=== PATIENT | male | born 1970 | race Caucasian/White ===

== ENCOUNTER 2017-09-20 19:34 | Inpatient (IN) | payer OTHER ==
[~2017-09-20] VITALS: Ht 167.6 cm; Wt 101.7 kg
--- NOTE | 2017-09-20 19:45 | NUR ---
PT BIBA, PT A/OX4 BREATHING EFFORTLESSLY ON ROOM AIR, PT STATES HIS STOMACH STARTED BECOMING DISTENDED 3 DAYS AGO AND VEERY DAY IT GETS WORSE, PT STATES HE HAS LIVER FAILURE, PT ON MONITOR, IV PLACED, LAB IN ROOM TO DRAW, MADE AWARE WILL CONTINUE TO MONITOR.
[2017-09-20 20:19] LABS: CALCIUM, SERUM 8.5 mg/dL (8.5-10.1); CREATININE 1.9 mg/dL (0.6-1.3); POTASSIUM 5.2 mmol/L (3.5-5.1)
[2017-09-20 20:31] LABS: ALBUMIN 2.4 g/dL (3.4-5.0); BILIRUBIN,DIRECT 1.1 mg/dL (0.0-0.2); BILIRUBIN,TOTAL 1.7 mg/dL (0.2-1.0); TOTAL PROTEIN, SERUM 4.9 g/dL (6.4-8.2)
[2017-09-20 21:17] LABS: HEMOGLOBIN 3.5 g/dL (13.5-17.5)
[2017-09-20 21:21] LABS: BASOPHILS # (AUTO) 0.1 /CMM (0.0-0.2); BASOPHILS % (AUTO) 0.9 % (0.0-2.0); EOSINOPHILS % (AUTO) 0.3 % (0.0-6.0); LYMPHOCYTES # (AUTO) 1.2 /CMM (0.8-4.8); LYMPHOCYTES % (AUTO) 11.1 % (20.0-44.0); MEAN CORPUSCULAR HEMOGLOBIN 20 PG (26.0-33.0); MEAN CORPUSCULAR HGB CONC 29 g/dl (31.0-36.0); MEAN CORPUSCULAR VOLUME 69 fL (80-96); MONOCYTES % (AUTO) 9.5 % (2.0-12.0); NEUTROPHILS # (AUTO) 8.6 /CMM (1.8-8.9); NEUTROPHILS % (AUTO) 78.2 % (43.0-81.0); PLATELET COUNT (AUTO) 199 /CMM (150-450); RDW COEFFICIENT OF VARIATION 22.2 (11.5-15.0); RED BLOOD CELL COUNT(AUTO) 1.83 MIL/uL (4.5-6.0)
[2017-09-20 21:22] LABS: HEMATOCRIT 13 % (39-51); HEMOGLOBIN 3.7 g/dL (13.5-17.5)
[2017-09-20 21:34] LABS: INR 1.44 (0.87-1.13)
[2017-09-20 21:44] LABS: BAND % (MANUAL) 2 % (0.0-5.0); LYMPHOCYTES % (MANUAL) 14 % (16-48); MONOCYTES % (MANUAL) 2 % (0-11.0); NEUTROPHILS % (MANUAL) 82 (42-76)
[2017-09-20] MEDS ORDERED: ONDANSETRON HCL/PF 4 MG/2 ML VIAL IV ONE (22:00)
[2017-09-20] MEDS ORDERED: MORPHINE SULFATE INJ 10 MG/ML DISP.SYRIN ONE (22:02)
[2017-09-20] MEDS ORDERED: ONDANSETRON HCL/PF 4 MG/2 ML VIAL ONE (22:02)
[2017-09-20] MEDS ORDERED: MORPHINE SULFATE INJ 2 MG/ML DISP.SYRIN IV ONE (22:30)
[2017-09-20 23:00] VITALS: BP 129/69
--- NOTE | 2017-09-20 23:00 | NUR ---
received pt from ER, a/o x4, follows commands, h/h 3.5/12, blood transfusion ordered, waiting for Live Gallegos to come in for the line insertion, has bad veins s/t IV drug abuse, SR, ST, on 2 L 02 sat well, lungs are clear, no edema, urinates in urinal, abdomen distended, s/p liver cirrhosis, had 2 BMs today, black ones, v/s stable, no pain, pt turns and repositions by himself, family at the bedside.
[2017-09-20 23:30] VITALS: BP 129/69
[2017-09-20] MEDS ORDERED: ACETAMINOPHEN 325 MG TABLET PO PRN (23:30)
[2017-09-21] VITALS (24 sets, daily range): BP systolic 105–139; BP diastolic 60–86
[2017-09-21] MEDS ORDERED: ONDANSETRON HCL/PF 4 MG/2 ML VIAL ONE (00:45)
[2017-09-21] MEDS: ONDANSETRON HCL/PF 4 MG/2 ML VIAL IV PRN ×2 (00:50→10:09)
--- NOTE | 2017-09-21 01:15 | NUR ---
Ashley IJ inserted by GUMARO SADLER.
--- NOTE | 2017-09-21 01:20 | NUR ---
pt transferred to [facility] per Dr Stout, report given, ACLS followed, v/s stable.
--- NOTE | 2017-09-21 02:30 | NUR ---
SALES FORCE ADMINISTRATOR; BLOOD TRANSFUSION STARTED, V/S STABLE. AFEBRILE. SINUS TACHY 110-120. DENIED CHEST PAIN. CLOSELY MONITORING FOR TRANSFUSION REACTION.
--- NOTE | 2017-09-21 03:12 | NUR ---
COMPLIANCE COORDINATOR; BLOOD TRANSFUSION ONGOING VIA RIGHT IJ CENTRAL LINE , NO REACTION NOTED IN 15 MIN, CENTRAL LINE VERIFIED WITH CHEST X-RAY, DR LE FROM ER CALLED IN ICU SPOKE TO MARLINE/RN SAID OK TO USE CENTRAL LINE.
--- NOTE | 2017-09-21 06:55 | NUR ---
BROADBAND ENGINEER: 2ND UNIT OF TRANSFUSION ONGOING, NO ADVERSE REACTION NOTED. V/S BEING STABLE. PT IS AAO X4, ABLE TO MOVE HIMSELF. DENIED PAIN. WILL ENDORSE CARE TO NEXT SHIFT.
[2017-09-21 08:19] LABS: BASOPHILS # (AUTO) 0.1 /CMM (0.0-0.2); BASOPHILS % (AUTO) 0.5 % (0.0-2.0); EOSINOPHILS % (AUTO) 0.1 % (0.0-6.0); LYMPHOCYTES # (AUTO) 1.3 /CMM (0.8-4.8); LYMPHOCYTES % (AUTO) 10.7 % (20.0-44.0); MEAN CORPUSCULAR HEMOGLOBIN 22 PG (26.0-33.0); MEAN CORPUSCULAR HGB CONC 31 g/dl (31.0-36.0); MEAN CORPUSCULAR VOLUME 73 fL (80-96); MONOCYTES # (AUTO) 1.5 /CMM (0.1-1.30); MONOCYTES % (AUTO) 11.9 % (2.0-12.0); NEUTROPHILS # (AUTO) 9.5 /CMM (1.8-8.9); NEUTROPHILS % (AUTO) 76.8 % (43.0-81.0); PLATELET COUNT (AUTO) 169 /CMM (150-450); RDW COEFFICIENT OF VARIATION 21.3 (11.5-15.0); RED BLOOD CELL COUNT(AUTO) 2.11 MIL/uL (4.5-6.0); WHITE BLOOD COUNT (AUTO) 12.4 K/uL (4.3-11.0)
[2017-09-21 08:35] LABS: CALCIUM, SERUM 8.2 mg/dL (8.5-10.1); CREATININE 1.8 mg/dL (0.6-1.3)
[2017-09-21 08:42] LABS: HEMATOCRIT 15 % (39-51); HEMOGLOBIN 4.7 g/dL (13.5-17.5)
[2017-09-21] MEDS ORDERED: METH10TA2 PO (08:44)
[2017-09-21] MEDS ORDERED: PANTOPRAZOLE 40 MG VIAL IV SCH (09:00)
[2017-09-21 09:10] LABS: LYMPHOCYTES % (MANUAL) 13 % (16-48); MONOCYTES % (MANUAL) 9 % (0-11.0); NEUTROPHILS % (MANUAL) 78 (42-76)
[2017-09-21] MEDS: FUROSEMIDE 40 MG TABLET PO SCH (10:08)
--- NOTE | 2017-09-21 10:34 | NUR ---
[facility] RN NOTE 0720: Received patient awake, A/Ox4. No respiratory distress noted at this time. On 2LPM of O2 via NC tolerated. With RIJ TLC intact, just done with blood transfusion #2 of 2. Awaiting F/U CBC at 0800 per previous nurse. With urinals at bedside. Still with distended abdomen from ascites. Able to do bed mobility independently. VSS at this time. 0900: S/E by Dr. Stout, verified Methadone dose from the records and said to continue. MD aware for H/H repeat after 2 units PRBC 4.05/27, with order to give 3 more units total today. With plan to transfer to [facility] after blood transfusion, charge nurse aware. 1020: Methadone dose records faxed to pharmacy. On #1 of 3 bag of PRBC ongoing, tolerated, no adverse reaction for now. Will continue to monitor.
[2017-09-21] MEDS: METHADONE HCL 10 MG TABLET PO SCH (15:28)
--- NOTE | 2017-09-21 17:05 | NUR ---
Met with patient and pee Pal at the bedside. Patient is alert, he lives with her firedd in the upper level apartment. Prior to admission, patient was ambulatory and independent with adl's. Plan to transfer to [facility] per insurance request. Per Douglas DARLING @ [facility], still awaiting bed. Will f/u in am Addendum: 09/21/17 at 2125 by ANA LUISA LARSEN RN Amended: Links added.
[2017-09-21] MEDS: PANTOPRAZOLE 40 MG VIAL IV SCH (17:27)
--- NOTE | 2017-09-21 18:34 | NUR ---
[facility] RN NOTE No any significant changes noted at this time. PRBC unit #3 of 3 ongoing, tolerated, no any adverse reactions noted. Kept patient clean, warm and dry. Needs attended. Patient is independent to ADLs. Tolerated diet. RIJ TLC intact. VSS, will endorse to next shift.
[2017-09-21] MEDS: HYDROMORPHONE INJ 2 MG/ML DISP.SYRIN IV PRN (19:49)
--- NOTE | 2017-09-21 19:50 | NUR ---
TD RN PT C/O GENERALIZED PAIN; DILAUDID 0.25 MG IVP GIVEN. CONTINUE TO MONITOR
--- NOTE | 2017-09-21 20:00 | NUR ---
TD RN PRBC INFUSION COMPLETE; NO IMMEDIATE S/O REACTION NOTED.
[2017-09-21 21:17] LABS: HEMOGLOBIN 7.1 g/dL (13.5-17.5)
--- NOTE | 2017-09-21 22:50 | NUR ---
TD RN RCD CALL FROM DR OLGUIN ASKING WHY PT WAS NOT TRANSFERRED TO [facility]; PER REPORT NO BEDS AT [facility] AT THIS TIME. DR OLGUIN ORDERED ONE MORE UNIT OF PRBC; NO ACTIVE BLEEDING NOTED. AWARE. PT TO BE NPO FOR EGD IN THE AM WITH DR FLORES. PT VERBALIZES UNDERSTANDING HE IS NPO.
[2017-09-22] VITALS (10 sets, daily range): BP systolic 109–139; BP diastolic 57–78
--- NOTE | 2017-09-22 03:05 | NUR ---
TD RN PRBC INFUSED; NO IMMEDIATE S/O REACTION NOTED.
[2017-09-22 06:46] LABS: BASOPHILS # (AUTO) 0.1 /CMM (0.0-0.2); BASOPHILS % (AUTO) 0.6 % (0.0-2.0); EOSINOPHILS # (AUTO) 0.1 /CMM (0.0-0.7); EOSINOPHILS % (AUTO) 1.3 % (0.0-6.0); HEMATOCRIT 25 % (39-51); LYMPHOCYTES # (AUTO) 1.7 /CMM (0.8-4.8); LYMPHOCYTES % (AUTO) 16.7 % (20.0-44.0); MEAN CORPUSCULAR HEMOGLOBIN 26 PG (26.0-33.0); MEAN CORPUSCULAR HGB CONC 33 g/dl (31.0-36.0); MEAN CORPUSCULAR VOLUME 79 fL (80-96); MONOCYTES # (AUTO) 1.3 /CMM (0.1-1.30); MONOCYTES % (AUTO) 12.7 % (2.0-12.0); NEUTROPHILS # (AUTO) 6.8 /CMM (1.8-8.9); NEUTROPHILS % (AUTO) 68.7 % (43.0-81.0); PLATELET COUNT (AUTO) 105 /CMM (150-450); RDW COEFFICIENT OF VARIATION 20.6 (11.5-15.0); RED BLOOD CELL COUNT(AUTO) 3.12 MIL/uL (4.5-6.0); WHITE BLOOD COUNT (AUTO) 9.9 K/uL (4.3-11.0)
[2017-09-22 06:56] LABS: CALCIUM, SERUM 7.9 mg/dL (8.5-10.1); CREATININE 1.5 mg/dL (0.6-1.3); POTASSIUM 4.3 mmol/L (3.5-5.1)
--- NOTE | 2017-09-22 07:30 | NUR ---
Received patient awake alert oriented x 3 afebrile no complaints at the moment for transfer to [facility] patient is able to use the bathroom without assist
[2017-09-22] MEDS ORDERED: SPIRONOLACTONE 25 MG TABLET PO SCH (09:00)
[2017-09-22] MEDS ORDERED: METHADONE HCL 10 MG TABLET PO SCH ×2 (09:00→10:31)
[2017-09-22] MEDS: FUROSEMIDE 40 MG TABLET PO SCH (09:00)
[2017-09-22] MEDS: PANTOPRAZOLE 40 MG VIAL IV SCH ×2 (09:10→17:20)
[2017-09-22] MEDS: METHADONE HCL 10 MG TABLET PO SCH (09:11)
--- NOTE | 2017-09-22 14:07 | NUR ---
RN [facility] ORDERED TO GIVE ADDITIONAL 1 PRBC TRANSFUSION ON GOING WILL ABLE TO TRANSFER TO [facility] REPORT GIVEN TO BILL PERRY
[2017-09-22] MEDS ORDERED: FLU VACC QS 2017-18(36MOS+)/PF 0.5 ML DISP.SYRIN IM ONE (15:00)
[2017-09-22] MEDS: HYDROMORPHONE INJ 2 MG/ML DISP.SYRIN IV PRN (17:20)
[2017-09-22] MEDS: ONDANSETRON HCL/PF 4 MG/2 ML VIAL IV PRN (17:20)
--- NOTE | 2017-09-22 17:52 | NUR ---
RN [facility] GAVE REPORT TO EMT/RN WILL TRANSFER PATIENT TO [facility] ENDORSED
== END 2017-09-22 18:23 | disposition short-term general hospital (02) | DRG 253 ==
LOC: ER 19:35 → ICU 23:41 → TELE-TD 09-21 01:08 → TELE1 09-22 13:09
PROVIDERS: ADMIT Internal Medicine; ATTEND Internal Medicine
PROC: B548ZZA Ultrasonography of Superior Vena Cava, Guidance (ICD-10-PCS; principal; 2017-09-21)
PROC: 30233N1 Transfusion of Nonautologous Red Blood Cells into Peripheral Vein, Percutaneous Approach (ICD-10-PCS; principal; 2017-09-21)
PROC: 02HV33Z Insertion of Infusion Device into Superior Vena Cava, Percutaneous Approach (ICD-10-PCS; principal; 2017-09-21)
DX: K92.2 Gastrointestinal hemorrhage, unspecified (principal); N17.0 Acute kidney failure with tubular necrosis; D68.59 Other primary thrombophilia; K76.6 Portal hypertension; D69.6 Thrombocytopenia, unspecified; N18.3 Chronic kidney disease, stage 3 (moderate); D50.0 Iron deficiency anemia secondary to blood loss (chronic); F19.11 Other psychoactive substance abuse, in remission; K70.31 Alcoholic cirrhosis of liver with ascites; Z87.891 Personal history of nicotine dependence; K59.00 Constipation, unspecified; B19.20 Unspecified viral hepatitis C without hepatic coma; F11.11 Opioid abuse, in remission; F10.20 Alcohol dependence, uncomplicated; D62 Acute posthemorrhagic anemia
CPT/HCPCS: 36415; 71010-TC; 76705-TC; 80048-TC; 80076-TC; 82272-TC; 85025-TC; 85027-TC; 85730-TC; 86850-TC; 86921-TC; 87081-TC; A4606; C1751; C9113; J1170; J2270; J2405; J7050; P9016-BL; Q2036; Z7610

== ENCOUNTER 2018-03-29 22:06 | Emergency (ER) | payer OTHER ==
[~2018-03-29 22:06] MED LIST: METH10TA2 PO
--- NOTE | 2018-03-29 22:14 | NUR ---
SPOKE WITH PATIENT, PATIENT STATES HE WANTS TO BE ADMITTED TO A ALCOHOL DETOX FACILITY. I TOLD PATIENT WE DO NOT HAVE A DETOX FACILITY AT [facility], [facility] HAS A DOTOX PROGRAM. PATIENT DECIDED TO GO TO [facility] TO GET INTO [facility] DETOX FACILITY. PATIENT THEN LEFT BEFORE TRIAGE
== END 2018-03-29 22:16 | disposition left against medical advice (07) ==
LOC: ER 22:08
DX: Z53.21 Procedure and treatment not carried out due to patient leaving prior to being seen by health care provider (principal)

== ENCOUNTER 2018-10-26 09:33 | Inpatient (IN) | payer OTHER ==
[2018-10-26] VITALS (47 sets, daily range): BP systolic 91–162; BP diastolic 37–111
[~2018-10-26] VITALS: Ht 170.2 cm; Wt 87.1 kg
[2018-10-26] MEDS ORDERED: PANTOPRAZOLE 40 MG VIAL ONE (09:49)
[2018-10-26] MEDS ORDERED: ONDANSETRON HCL/PF 4 MG/2 ML VIAL ONE (09:50)
[2018-10-26 09:53] LABS: BASOPHILS % (AUTO) 0.5 % (0.0-2.0); LYMPHOCYTES # (AUTO) 0.5 /CMM (0.8-4.8); LYMPHOCYTES % (AUTO) 6.2 % (20.0-44.0); MEAN CORPUSCULAR HGB CONC 28 g/dl (31.0-36.0); MEAN CORPUSCULAR VOLUME 75 fL (80-96); MONOCYTES # (AUTO) 0.9 /CMM (0.1-1.30); MONOCYTES % (AUTO) 10.8 % (2.0-12.0); NEUTROPHILS # (AUTO) 6.8 /CMM (1.8-8.9); NEUTROPHILS % (AUTO) 82.5 % (43.0-81.0); PLATELET COUNT (AUTO) 65 /CMM (150-450); RED BLOOD CELL COUNT(AUTO) 1.29 MIL/uL (4.5-6.0); WHITE BLOOD COUNT (AUTO) 8.2 K/uL (4.3-11.0)
[2018-10-26 09:54] LABS: HEMATOCRIT 10 % (39-51)
[2018-10-26 09:56] LABS: HEMOGLOBIN 2.7 g/dL (13.5-17.5)
[2018-10-26] MEDS ORDERED: OCTREOTIDE 100 MCG/ML VIAL ONE (09:57)
[2018-10-26] MEDS ORDERED: OCTREOTIDE 50 MCG in IV NS 0.9% 50 ML IV ONE (10:00)
[2018-10-26] MEDS ORDERED: ONDANSETRON HCL/PF 4 MG/2 ML VIAL IV ONE (10:00)
[2018-10-26] MEDS ORDERED: PANTOPRAZOLE 40 MG VIAL IV ONE (10:00)
[2018-10-26] MEDS ORDERED: IV NS 0.9% 1,000 ML BAG IV ONE (10:00)
[2018-10-26 10:02] LABS: CALCIUM, SERUM 6.9 mg/dL (8.5-10.1); POTASSIUM 4.1 mmol/L (3.5-5.1)
[2018-10-26 10:17] LABS: ALBUMIN 1.7 g/dL (3.4-5.0); BILIRUBIN,DIRECT 0.9 mg/dL (0.0-0.2); BILIRUBIN,TOTAL 1.4 mg/dL (0.2-1.0); TOTAL PROTEIN, SERUM 3.5 g/dL (6.4-8.2)
[2018-10-26] MEDS ORDERED: CALCIUM CHLORIDE 1,000 MG/10 ML DISP.SYRIN ONE (10:19)
[2018-10-26] MEDS ORDERED: FERR325T23 PO (10:21)
[2018-10-26] MEDS ORDERED: FURO-144 PO (10:21)
[2018-10-26] MEDS ORDERED: DOCU-141 PO (10:21)
[2018-10-26] MEDS ORDERED: CALC500T52 PO (10:21)
[2018-10-26] MEDS ORDERED: MULT1TAB69 PO (10:21)
[2018-10-26] MEDS ORDERED: SPIR25TA PO (10:21)
[2018-10-26] MEDS: OCTREOTIDE 1,250 MCG in IV NS 0.9% 247.5 ML IV PRN ×3 (10:24→17:30)
[2018-10-26] MEDS ORDERED: CALCIUM CHLORIDE 1,000 MG/10 ML DISP.SYRIN IV ONE (10:30)
[2018-10-26] MEDS ORDERED: CEFTRIAXONE 1 G in IV D5W 50 ML IV ONE ×2 (10:30→13:30)
[2018-10-26] MEDS ORDERED: CEFTRIAXONE 1GM BAG (ER ONLY) 50 ML IV ONE (11:00)
[2018-10-26 11:01] LABS: LYMPHOCYTES % (MANUAL) 14 % (16-48); MONOCYTES % (MANUAL) 3 % (0-11.0); NEUTROPHILS % (MANUAL) 83 (42-76)
[2018-10-26] MEDS ORDERED: LORAZEPAM INJ 2 MG/ML VIAL IV PRN (11:30)
[2018-10-26] MEDS ORDERED: ONDANSETRON HCL/PF 4 MG/2 ML VIAL IV PRN (11:30)
[2018-10-26] MEDS: Thiamine 100 MG in IV D5W 50 ML IV SCH (14:12)
[2018-10-26] MEDS: Potassium Chloride 10 MEQ in IV D5/ 0.9% NACL 1,000 ML IV PRN (14:12)
[2018-10-26] MEDS: Folic acid 1 MG in IV D5W 50 ML IV SCH (14:12)
[2018-10-26] MEDS: LORAZEPAM INJ 2 MG/ML VIAL IV PRN ×3 (14:48→23:57)
[2018-10-26] MEDS: PYRIDOXINE HCL INJ 100 MG/ML VIAL IV SCH (15:27)
[2018-10-26] MEDS: MORPHINE SULFATE INJ 4 MG/ML DISP.SYRIN IM PRN ×2 (16:00→20:42)
[2018-10-26] MEDS: CHLORDIAZEPOXIDE HCL 25 MG CAPSULE PO SCH ×2 (16:02→21:55)
[2018-10-26] MEDS: PANTOPRAZOLE 40 MG VIAL IV SCH (17:30)
[2018-10-26] MEDS ORDERED: FUROSEMIDE 20 MG/2 ML VIAL ONE (22:19)
[2018-10-26] MEDS ORDERED: FUROSEMIDE 20 MG/2 ML VIAL IV ONE (22:30)
[2018-10-27] VITALS (61 sets, daily range): BP systolic 88–156; BP diastolic 37–100
[2018-10-27] MEDS ORDERED: LORAZEPAM INJ 2 MG/ML VIAL IM ONE (01:30)
[2018-10-27] MEDS ORDERED: HALOPERIDOL LACTATE INJ 5 MG/ML VIAL IM ONE (01:30)
[2018-10-27] MEDS ORDERED: diphenhydrAMINE HCL 50 MG/ML VIAL IM ONE (01:30)
[2018-10-27] MEDS: LORAZEPAM INJ 2 MG/ML VIAL IV PRN ×2 (04:01→09:47)
[2018-10-27] MEDS ORDERED: LORAZEPAM INJ 2 MG/ML VIAL IV ONE (07:30)
[2018-10-27] MEDS: CHLORDIAZEPOXIDE HCL 25 MG CAPSULE PO SCH ×2 (09:00→18:20)
[2018-10-27] MEDS ORDERED: PYRIDOXINE HCL INJ 100 MG/ML VIAL IV SCH (09:00)
[2018-10-27] MEDS ORDERED: HYDROMORPHONE INJ 0.5 MG/0.5 ML SYRINGE IM ONE ×2 (12:00)
[2018-10-27] MEDS ORDERED: OLANZAPINE 10 MG VIAL IM ONE (12:00)
[2018-10-27] MEDS ORDERED: HYDROMORPHONE 1 MG/1 ML DISP.SYRIN IM ONE (12:30)
[2018-10-27] MEDS: Potassium Chloride 10 MEQ in IV D5/ 0.9% NACL 1,000 ML IV PRN (12:40)
[2018-10-27 13:01] LABS: LYMPHOCYTES # (AUTO) 0.6 /CMM (0.8-4.8); LYMPHOCYTES % (AUTO) 5.9 % (20.0-44.0); MEAN CORPUSCULAR HGB CONC 32 g/dl (31.0-36.0); MEAN CORPUSCULAR VOLUME 81 fL (80-96); MONOCYTES % (AUTO) 18.6 % (2.0-12.0); NEUTROPHILS # (AUTO) 8.2 /CMM (1.8-8.9); NEUTROPHILS % (AUTO) 75.5 % (43.0-81.0); PLATELET COUNT (AUTO) 64 /CMM (150-450); WHITE BLOOD COUNT (AUTO) 10.8 K/uL (4.3-11.0)
[2018-10-27 13:10] LABS: CALCIUM, SERUM 7.7 mg/dL (8.5-10.1); CREATININE 1.7 mg/dL (0.6-1.3); POTASSIUM 5.3 mmol/L (3.5-5.1)
[2018-10-27 13:17] LABS: RED BLOOD CELL COUNT(AUTO) 1.94 MIL/uL (4.5-6.0)
[2018-10-27 13:18] LABS: HEMATOCRIT 16 % (39-51)
[2018-10-27 13:36] LABS: LYMPHOCYTES % (MANUAL) 8 % (16-48); MONOCYTES % (MANUAL) 15 % (0-11.0); NEUTROPHILS % (MANUAL) 77 (42-76)
[2018-10-27] MEDS: PANTOPRAZOLE 40 MG VIAL IV SCH ×2 (15:17→18:35)
[2018-10-27] MEDS: OCTREOTIDE 1,250 MCG in IV NS 0.9% 247.5 ML IV PRN ×2 (15:17→18:34)
[2018-10-27] MEDS: PYRIDOXINE HCL INJ 100 MG/ML VIAL IV SCH (15:19)
[2018-10-27] MEDS ORDERED: PHYTONADIONE INJ 10 MG/1 ML AMPUL IV ONE ×2 (15:30→18:30)
[2018-10-27] MEDS: IV D5/ 0.9% NACL 1,000 ML IV PRN (15:35)
[2018-10-27] MEDS: Thiamine 100 MG in IV D5W 50 ML IV SCH (15:46)
[2018-10-27] MEDS: Folic acid 1 MG in IV D5W 50 ML IV SCH (18:38)
[2018-10-28] VITALS (186 sets, daily range): BP systolic 86–157; BP diastolic 51–103
[2018-10-28] MEDS: LORAZEPAM INJ 2 MG/ML VIAL IV PRN (02:06)
[2018-10-28 04:45] LABS: BASOPHILS % (AUTO) 0.1 % (0.0-2.0); EOSINOPHILS % (AUTO) 0.1 % (0.0-6.0); LYMPHOCYTES # (AUTO) 0.2 /CMM (0.8-4.8); LYMPHOCYTES % (AUTO) 6.9 % (20.0-44.0); MEAN CORPUSCULAR HGB CONC 33 g/dl (31.0-36.0); MEAN CORPUSCULAR VOLUME 80 fL (80-96); MONOCYTES # (AUTO) 0.5 /CMM (0.1-1.30); MONOCYTES % (AUTO) 16.1 % (2.0-12.0); NEUTROPHILS # (AUTO) 2.6 /CMM (1.8-8.9); NEUTROPHILS % (AUTO) 76.8 % (43.0-81.0); RED BLOOD CELL COUNT(AUTO) 2.33 MIL/uL (4.5-6.0); WHITE BLOOD COUNT (AUTO) 3.3 K/uL (4.3-11.0)
[2018-10-28] MEDS: IV D5/ 0.9% NACL 1,000 ML IV PRN ×4 (04:45→22:31)
[2018-10-28 04:46] LABS: ALBUMIN 1.8 g/dL (3.4-5.0); CALCIUM, SERUM 7.3 mg/dL (8.5-10.1); CREATININE 1.2 mg/dL (0.6-1.3); POTASSIUM 4.2 mmol/L (3.5-5.1); TOTAL PROTEIN, SERUM 3.6 g/dL (6.4-8.2)
[2018-10-28 04:55] LABS: HEMATOCRIT 19 % (39-51); HEMOGLOBIN 6.2 g/dL (13.5-17.5); PLATELET COUNT (AUTO) 30 /CMM (150-450)
[2018-10-28 05:23] LABS: LYMPHOCYTES % (MANUAL) 9 % (16-48); MONOCYTES % (MANUAL) 12 % (0-11.0); NEUTROPHILS % (MANUAL) 79 (42-76)
[2018-10-28] MEDS ORDERED: FUROSEMIDE 40 MG/4 ML VIAL IV ONE ×2 (08:30→17:00)
[2018-10-28 08:53] LABS: ABG BASE EXCESS -2.6 mmol/L; ABG OXYGEN SATURATION 97.9 % (92.0-98.5); ABG PCO2 17.5 mmHg (35.0-45.0); ABG PH 7.625 (7.350-7.450); AaDO2 66.9 mmHg; COHb 0.4 % (0.5-1.5); MetHb 1.3 % (0.0-1.5); O2Hb 96.2 % (94.0-97.0); SITE, ABG Right Radial; VENT MODE, BG NC 3LPM
[2018-10-28] MEDS: CHLORDIAZEPOXIDE HCL 25 MG CAPSULE PO SCH ×2 (09:00→16:03)
[2018-10-28] MEDS: PANTOPRAZOLE 40 MG VIAL IV SCH ×2 (09:31→16:13)
[2018-10-28] MEDS ORDERED: MIDAZOLAM HCL 2 MG/2ML VIAL ONE (10:51)
[2018-10-28] MEDS ORDERED: ROCURONIUM BROMIDE 50 MG/5 ML ONE (10:51)
[2018-10-28] MEDS ORDERED: EPINEPHRINE (1:10,000) SYRINGE 1 MG/10 ML DISP.SYRIN ONE ×2 (11:03→11:04)
[2018-10-28] MEDS: PROPOFOL 100 ML IV PRN (12:19)
[2018-10-28] MEDS: MIDODRINE HCL (5MG) 5 MG TABLET PO SCH ×2 (13:00→16:03)
[2018-10-28] MEDS: ALBUMIN 25% 25 GM in PREMIX 1 EA IV SCH ×2 (13:33→23:44)
[2018-10-28] MEDS: CARVEDILOL 3.125 MG TABLET PO SCH ×2 (13:56→20:49)
[2018-10-28] MEDS: Folic acid 1 MG in IV D5W 50 ML IV SCH (14:44)
[2018-10-28] MEDS: PYRIDOXINE HCL INJ 100 MG/ML VIAL IV SCH (16:07)
[2018-10-28] MEDS: Thiamine 100 MG in IV D5W 50 ML IV SCH (16:19)
[2018-10-28 16:41] LABS: BASOPHILS % (AUTO) 0.3 % (0.0-2.0); EOSINOPHILS % (AUTO) 0.1 % (0.0-6.0); HEMATOCRIT 28 % (39-51); HEMOGLOBIN 9.2 g/dL (13.5-17.5); LYMPHOCYTES # (AUTO) 0.3 /CMM (0.8-4.8); LYMPHOCYTES % (AUTO) 4.4 % (20.0-44.0); MEAN CORPUSCULAR HGB CONC 33 g/dl (31.0-36.0); MEAN CORPUSCULAR VOLUME 83 fL (80-96); MONOCYTES # (AUTO) 1.3 /CMM (0.1-1.30); MONOCYTES % (AUTO) 19.4 % (2.0-12.0); NEUTROPHILS # (AUTO) 5.1 /CMM (1.8-8.9); NEUTROPHILS % (AUTO) 75.8 % (43.0-81.0); RED BLOOD CELL COUNT(AUTO) 3.39 MIL/uL (4.5-6.0); WHITE BLOOD COUNT (AUTO) 6.7 K/uL (4.3-11.0)
[2018-10-28 17:07] LABS: PLATELET COUNT (AUTO) 48 /CMM (150-450)
[2018-10-28 17:12] LABS: LYMPHOCYTES % (MANUAL) 7 % (16-48); MONOCYTES % (MANUAL) 8 % (0-11.0); NEUTROPHILS % (MANUAL) 85 (42-76)
[2018-10-28] MEDS: OCTREOTIDE 1,250 MCG in IV NS 0.9% 247.5 ML IV PRN (17:35)
[2018-10-28] MEDS: LACTULOSE 10 G/15 ML UDC (PYXIS) PR SCH (20:49)
[2018-10-29] VITALS (65 sets, daily range): BP systolic 111–157; BP diastolic 60–84
[2018-10-29] MEDS: PROPOFOL 100 ML IV PRN ×4 (02:30→22:22)
[2018-10-29 04:41] LABS: BASOPHILS % (AUTO) 0.3 % (0.0-2.0); EOSINOPHILS % (AUTO) 0.6 % (0.0-6.0); HEMATOCRIT 23 % (39-51); HEMOGLOBIN 7.6 g/dL (13.5-17.5); LYMPHOCYTES # (AUTO) 0.4 /CMM (0.8-4.8); LYMPHOCYTES % (AUTO) 8.4 % (20.0-44.0); MEAN CORPUSCULAR HGB CONC 33 g/dl (31.0-36.0); MEAN CORPUSCULAR VOLUME 83 fL (80-96); NEUTROPHILS # (AUTO) 3.1 /CMM (1.8-8.9); NEUTROPHILS % (AUTO) 68.7 % (43.0-81.0); WHITE BLOOD COUNT (AUTO) 4.5 K/uL (4.3-11.0)
[2018-10-29 04:49] LABS: PLATELET COUNT (AUTO) 36 /CMM (150-450)
[2018-10-29] MEDS: LACTULOSE 10 G/15 ML UDC (PYXIS) PR SCH ×3 (04:53→20:07)
[2018-10-29 05:05] LABS: ALBUMIN 2.5 g/dL (3.4-5.0); BILIRUBIN,TOTAL 5.9 mg/dL (0.2-1.0); CALCIUM, SERUM 7.3 mg/dL (8.5-10.1); CREATININE 1.2 mg/dL (0.6-1.3); MAGNESIUM 2.3 mg/dL (1.8-2.4); POTASSIUM 3.2 mmol/L (3.5-5.1); TOTAL PROTEIN, SERUM 4.3 g/dL (6.4-8.2)
[2018-10-29 05:13] LABS: MONOCYTES % (MANUAL) 15 % (0-11.0)
[2018-10-29 05:14] LABS: LYMPHOCYTES % (MANUAL) 8 % (16-48); NEUTROPHILS % (MANUAL) 77 (42-76)
[2018-10-29] MEDS: LORAZEPAM INJ 2 MG/ML VIAL IV PRN ×2 (07:46→12:30)
[2018-10-29 08:02] LABS: ABG BASE EXCESS -1.2 mmol/L; ABG OXYGEN SATURATION 96.9 % (92.0-98.5); ABG PCO2 27.2 mmHg (35.0-45.0); ABG PH 7.509 (7.350-7.450); ABG PO2 111.7 mmHg (75.0-100.0); AaDO2 142.2 mmHg; COHb 0.3 % (0.5-1.5); MetHb 0.8 % (0.0-1.5); O2Hb 95.8 % (94.0-97.0); SITE, ABG Right Radial; VENT MODE, BG AC 14 550 40% +5
[2018-10-29] MEDS: MIDODRINE HCL (5MG) 5 MG TABLET PO SCH ×3 (08:13→17:00)
[2018-10-29] MEDS: CARVEDILOL 3.125 MG TABLET PO SCH ×2 (08:13→21:00)
[2018-10-29] MEDS: CHLORDIAZEPOXIDE HCL 25 MG CAPSULE PO SCH (08:13)
[2018-10-29] MEDS ORDERED: POTASSIUM CHLORIDE 10 MEQ/50 ML PREMIXED IVPB FOR PERIPHERAL LINE IV ONE (08:30)
[2018-10-29] MEDS: PANTOPRAZOLE 40 MG VIAL IV SCH ×2 (08:48→17:14)
[2018-10-29] MEDS: POTASSIUM CL. PREMIX PERIPHER. 50 ML IV SCH ×4 (08:48→11:51)
[2018-10-29] MEDS: PYRIDOXINE HCL INJ 100 MG/ML VIAL IV SCH (11:01)
[2018-10-29] MEDS: Folic acid 1 MG in IV D5W 50 ML IV SCH (11:25)
[2018-10-29] MEDS: IV D5/ 0.9% NACL 1,000 ML IV PRN (11:36)
[2018-10-29] MEDS: Thiamine 100 MG in IV D5W 50 ML IV SCH (11:54)
[2018-10-29] MEDS: OCTREOTIDE 1,250 MCG in IV NS 0.9% 247.5 ML IV PRN (17:15)
[2018-10-30] VITALS (47 sets, daily range): BP systolic 111–135; BP diastolic 58–87
[2018-10-30] MEDS: IV D5/ 0.9% NACL 1,000 ML IV PRN ×2 (01:44→17:45)
[2018-10-30 05:25] LABS: CALCIUM, SERUM 7.2 mg/dL (8.5-10.1); POTASSIUM 3.2 mmol/L (3.5-5.1)
[2018-10-30] MEDS ORDERED: LACTULOSE 10 G/15 ML UDC (PYXIS) ONE (05:31)
[2018-10-30] MEDS: LACTULOSE 10 G/15 ML UDC (PYXIS) PR SCH ×3 (05:33→19:46)
[2018-10-30 06:07] LABS: BASOPHILS % (AUTO) 0.4 % (0.0-2.0); EOSINOPHILS % (AUTO) 1.5 % (0.0-6.0); HEMATOCRIT 29 % (39-51); HEMOGLOBIN 9.5 g/dL (13.5-17.5); LYMPHOCYTES # (AUTO) 0.2 /CMM (0.8-4.8); LYMPHOCYTES % (AUTO) 4.8 % (20.0-44.0); MEAN CORPUSCULAR HGB CONC 33 g/dl (31.0-36.0); MEAN CORPUSCULAR VOLUME 85 fL (80-96); MONOCYTES # (AUTO) 1.2 /CMM (0.1-1.30); MONOCYTES % (AUTO) 24.8 % (2.0-12.0); NEUTROPHILS # (AUTO) 3.3 /CMM (1.8-8.9); NEUTROPHILS % (AUTO) 68.5 % (43.0-81.0); RED BLOOD CELL COUNT(AUTO) 3.37 MIL/uL (4.5-6.0); WHITE BLOOD COUNT (AUTO) 4.8 K/uL (4.3-11.0)
[2018-10-30 06:09] LABS: PLATELET COUNT (AUTO) 39 /CMM (150-450)
[2018-10-30 06:34] LABS: LYMPHOCYTES % (MANUAL) 4 % (16-48); MONOCYTES % (MANUAL) 16 % (0-11.0); NEUTROPHILS % (MANUAL) 80 (42-76)
[2018-10-30] MEDS: PROPOFOL 100 ML IV PRN ×3 (07:34→19:42)
[2018-10-30 08:25] LABS: ABG BASE EXCESS -4.3 mmol/L; ABG OXYGEN SATURATION 95.7 % (92.0-98.5); ABG PCO2 27.7 mmHg (35.0-45.0); ABG PH 7.446 (7.350-7.450); ABG PO2 90.7 mmHg (75.0-100.0); AaDO2 162.6 mmHg; COHb 0.3 % (0.5-1.5); O2Hb 94.5 % (94.0-97.0); PEEP,BG 5 cm H2O; SITE, ABG Right Radial; VENT MODE, BG AC 14 500; VT, ABG 500 mL
[2018-10-30] MEDS: CARVEDILOL 3.125 MG TABLET PO SCH ×2 (09:00→21:00)
[2018-10-30] MEDS: MIDODRINE HCL (5MG) 5 MG TABLET PO SCH ×3 (09:00→16:47)
[2018-10-30] MEDS ORDERED: CEFTRIAXONE 1 G in IV D5W 50 ML IV SCH (10:00)
[2018-10-30] MEDS ORDERED: POTASSIUM CHLORIDE 10 MEQ/50 ML PREMIXED IVPB FOR PERIPHERAL LINE IV ONE (10:00)
[2018-10-30] MEDS: PYRIDOXINE HCL INJ 100 MG/ML VIAL IV SCH (10:14)
[2018-10-30] MEDS: PANTOPRAZOLE 40 MG VIAL IV SCH ×2 (10:14→17:00)
[2018-10-30] MEDS: POTASSIUM CL. PREMIX PERIPHER. 50 ML IV SCH ×4 (11:25→14:33)
[2018-10-30] MEDS: Folic acid 1 MG in IV D5W 50 ML IV SCH (13:01)
[2018-10-30] MEDS: Thiamine 100 MG in IV D5W 50 ML IV SCH (13:02)
[2018-10-30] MEDS: OCTREOTIDE 1,250 MCG in IV NS 0.9% 247.5 ML IV PRN (18:49)
[2018-10-31] VITALS (43 sets, daily range): BP systolic 112–162; BP diastolic 58–103
[2018-10-31] MEDS: PROPOFOL 100 ML IV PRN ×2 (02:00→06:52)
[2018-10-31 05:03] LABS: BASOPHILS % (AUTO) 0.8 % (0.0-2.0); EOSINOPHILS % (AUTO) 3.7 % (0.0-6.0); HEMATOCRIT 28 % (39-51); LYMPHOCYTES # (AUTO) 0.5 /CMM (0.8-4.8); LYMPHOCYTES % (AUTO) 9.5 % (20.0-44.0); MEAN CORPUSCULAR HGB CONC 32 g/dl (31.0-36.0); MEAN CORPUSCULAR VOLUME 86 fL (80-96); MONOCYTES # (AUTO) 1.2 /CMM (0.1-1.30); MONOCYTES % (AUTO) 23.4 % (2.0-12.0); NEUTROPHILS # (AUTO) 3.3 /CMM (1.8-8.9); NEUTROPHILS % (AUTO) 62.6 % (43.0-81.0); RED BLOOD CELL COUNT(AUTO) 3.25 MIL/uL (4.5-6.0); WHITE BLOOD COUNT (AUTO) 5.2 K/uL (4.3-11.0)
[2018-10-31 05:16] LABS: CALCIUM, SERUM 7.2 mg/dL (8.5-10.1); CREATININE 0.9 mg/dL (0.6-1.3); POTASSIUM 3.7 mmol/L (3.5-5.1)
[2018-10-31] MEDS: LACTULOSE 10 G/15 ML UDC (PYXIS) PR SCH ×2 (05:16→12:43)
[2018-10-31 05:28] LABS: PLATELET COUNT (AUTO) 40 /CMM (150-450)
[2018-10-31 06:10] LABS: LYMPHOCYTES % (MANUAL) 13 % (16-48); MONOCYTES % (MANUAL) 20 % (0-11.0); NEUTROPHILS % (MANUAL) 63 (42-76)
[2018-10-31 06:11] LABS: EOSINOPHILS % (MANUAL) 4 % (0-4)
[2018-10-31] MEDS: IV D5/ 0.9% NACL 1,000 ML IV PRN (06:51)
[2018-10-31 08:26] LABS: ABG OXYGEN SATURATION 96.1 % (92.0-98.5); ABG PCO2 29.4 mmHg (35.0-45.0); ABG PH 7.418 (7.350-7.450); ABG PO2 94.9 mmHg (75.0-100.0); AaDO2 84.5 mmHg; COHb 0.3 % (0.5-1.5); MetHb 0.8 % (0.0-1.5); PEEP,BG 5 cm H2O; SITE, ABG Right Radial; VT, ABG 500 mL
[2018-10-31] MEDS ORDERED: Potassium Chloride 20 MEQ in IV D5/0.45 NACL 1,000 ML IV PRN (08:30)
[2018-10-31] MEDS: LORAZEPAM INJ 2 MG/ML VIAL IV PRN (08:46)
[2018-10-31] MEDS ORDERED: DC PROPOFOL WHEN EXTUBATED XX PRN (09:00)
[2018-10-31] MEDS: PANTOPRAZOLE 40 MG VIAL IV SCH ×2 (10:01→16:52)
[2018-10-31] MEDS: PYRIDOXINE HCL INJ 100 MG/ML VIAL IV SCH (10:01)
[2018-10-31] MEDS: PROPRANOLOL HCL 40 MG TABLET PO SCH ×2 (10:03→20:47)
[2018-10-31] MEDS: PIPERACILLIN /TAZOBACTAM 3.375 G in IV D5W 100 ML IV SCH ×2 (10:56→17:34)
[2018-10-31] MEDS ORDERED: PIPERACILLIN /TAZOBACTAM 3.375 G in IV D5W 50 ML IV SCH (12:00)
[2018-10-31] MEDS: Folic acid 1 MG in IV D5W 50 ML IV SCH (12:11)
[2018-10-31] MEDS: Thiamine 100 MG in IV D5W 50 ML IV SCH (12:49)
[2018-10-31] MEDS: OCTREOTIDE 1,250 MCG in IV NS 0.9% 247.5 ML IV PRN (19:36)
[2018-10-31] MEDS: LACTULOSE 10 G/15 ML UDC (PYXIS) PO SCH (20:47)
[2018-11-01] VITALS (33 sets, daily range): BP systolic 84–169; BP diastolic 54–106
[2018-11-01] MEDS: PIPERACILLIN /TAZOBACTAM 3.375 G in IV D5W 100 ML IV SCH ×3 (01:00→17:23)
[2018-11-01] MEDS: LACTULOSE 10 G/15 ML UDC (PYXIS) PO SCH ×3 (04:13→21:02)
[2018-11-01 04:50] LABS: BASOPHILS # (AUTO) 0.1 /CMM (0.0-0.2); BASOPHILS % (AUTO) 1.2 % (0.0-2.0); EOSINOPHILS % (AUTO) 2.3 % (0.0-6.0); HEMATOCRIT 28 % (39-51); HEMOGLOBIN 8.9 g/dL (13.5-17.5); LYMPHOCYTES # (AUTO) 0.4 /CMM (0.8-4.8); LYMPHOCYTES % (AUTO) 7.2 % (20.0-44.0); MEAN CORPUSCULAR HGB CONC 32 g/dl (31.0-36.0); MEAN CORPUSCULAR VOLUME 88 fL (80-96); MONOCYTES # (AUTO) 1.2 /CMM (0.1-1.30); MONOCYTES % (AUTO) 21.6 % (2.0-12.0); NEUTROPHILS # (AUTO) 3.9 /CMM (1.8-8.9); NEUTROPHILS % (AUTO) 67.7 % (43.0-81.0); RED BLOOD CELL COUNT(AUTO) 3.16 MIL/uL (4.5-6.0); WHITE BLOOD COUNT (AUTO) 5.7 K/uL (4.3-11.0)
[2018-11-01 05:09] LABS: PLATELET COUNT (AUTO) 49 /CMM (150-450)
[2018-11-01 05:26] LABS: CALCIUM, SERUM 6.7 mg/dL (8.5-10.1); CREATININE 0.8 mg/dL (0.6-1.3); MAGNESIUM 1.9 mg/dL (1.8-2.4); POTASSIUM 5.3 mmol/L (3.5-5.1)
[2018-11-01 05:56] LABS: LYMPHOCYTES % (MANUAL) 10 % (16-48); MONOCYTES % (MANUAL) 17 % (0-11.0); NEUTROPHILS % (MANUAL) 73 (42-76)
[2018-11-01] MEDS: LORAZEPAM INJ 2 MG/ML VIAL IV PRN ×2 (07:59→21:00)
[2018-11-01] MEDS: IV D5/0.45 NACL 1,000 ML IV PRN ×2 (08:22→22:03)
[2018-11-01] MEDS: HYDROMORPHONE 1 MG/1 ML DISP.SYRIN IV PRN (08:33)
[2018-11-01] MEDS ORDERED: METHADONE HCL 10 MG TABLET PO SCH (09:00)
[2018-11-01] MEDS: PANTOPRAZOLE 40 MG VIAL IV SCH ×2 (09:23→17:23)
[2018-11-01] MEDS: PYRIDOXINE HCL INJ 100 MG/ML VIAL IV SCH (09:23)
[2018-11-01] MEDS ORDERED: OLANZAPINE 10 MG VIAL IM PRN (10:00)
[2018-11-01] MEDS: PROPRANOLOL HCL 40 MG TABLET PO SCH ×2 (10:09→21:01)
[2018-11-01] MEDS: METHADONE HCL 10 MG TABLET PO SCH (13:49)
[2018-11-01] MEDS ORDERED: Folic acid 1 MG in IV D5W 50 ML IV ONE (15:00)
[2018-11-01] MEDS ORDERED: Thiamine 100 MG in IV D5W 50 ML IV ONE (15:00)
[2018-11-01] MEDS: OCTREOTIDE 1,250 MCG in IV NS 0.9% 247.5 ML IV PRN (16:13)
[2018-11-02] VITALS (24 sets, daily range): BP systolic 114–160; BP diastolic 77–93
[2018-11-02] MEDS: HYDROMORPHONE 1 MG/1 ML DISP.SYRIN IV PRN (01:27)
[2018-11-02] MEDS: PIPERACILLIN /TAZOBACTAM 3.375 G in IV D5W 100 ML IV SCH ×3 (02:15→18:06)
[2018-11-02] MEDS: LACTULOSE 10 G/15 ML UDC (PYXIS) PO SCH ×3 (04:42→20:57)
[2018-11-02 04:53] LABS: BASOPHILS # (AUTO) 0.3 /CMM (0.0-0.2); EOSINOPHILS % (AUTO) 5.2 % (0.0-6.0); HEMATOCRIT 31 % (39-51); HEMOGLOBIN 10.1 g/dL (13.5-17.5); LYMPHOCYTES # (AUTO) 0.8 /CMM (0.8-4.8); LYMPHOCYTES % (AUTO) 12.3 % (20.0-44.0); MEAN CORPUSCULAR HGB CONC 33 g/dl (31.0-36.0); MEAN CORPUSCULAR VOLUME 86 fL (80-96); MONOCYTES # (AUTO) 1.1 /CMM (0.1-1.30); MONOCYTES % (AUTO) 18.1 % (2.0-12.0); NEUTROPHILS # (AUTO) 3.6 /CMM (1.8-8.9); PLATELET COUNT (AUTO) 59 /CMM (150-450); RED BLOOD CELL COUNT(AUTO) 3.58 MIL/uL (4.5-6.0); WHITE BLOOD COUNT (AUTO) 6.1 K/uL (4.3-11.0)
[2018-11-02 05:01] LABS: CALCIUM, SERUM 7.2 mg/dL (8.5-10.1); CREATININE 0.7 mg/dL (0.6-1.3); MAGNESIUM 1.8 mg/dL (1.8-2.4); POTASSIUM 3.9 mmol/L (3.5-5.1)
[2018-11-02 05:34] LABS: BASOPHILS % (AUTO) 5.4 % (0.0-2.0)
[2018-11-02 06:04] LABS: BASOPHILS % (MANUAL) 2 % (0.0-2.0); EOSINOPHILS % (MANUAL) 1 % (0-4); MONOCYTES % (MANUAL) 17 % (0-11.0); NEUTROPHILS % (MANUAL) 69 (42-76)
[2018-11-02 06:05] LABS: LYMPHOCYTES % (MANUAL) 11 % (16-48)
[2018-11-02] MEDS: METHADONE HCL 10 MG TABLET PO SCH (08:14)
[2018-11-02] MEDS: PANTOPRAZOLE 40 MG VIAL IV SCH ×2 (08:15→16:32)
[2018-11-02] MEDS: PYRIDOXINE HCL INJ 100 MG/ML VIAL IV SCH (08:19)
[2018-11-02] MEDS: PROPRANOLOL HCL 40 MG TABLET PO SCH ×2 (08:22→20:58)
[2018-11-02] MEDS ORDERED: FOLIC ACID 1 MG TABLET PO SCH (09:00)
[2018-11-02] MEDS ORDERED: THIAMINE HCL 100 MG TABLET PO SCH (09:00)
[2018-11-02] MEDS: IV D5/0.45 NACL 1,000 ML IV PRN (12:37)
[2018-11-02] MEDS: OCTREOTIDE 1,250 MCG in IV NS 0.9% 247.5 ML IV PRN (18:54)
[2018-11-02] MEDS: LORAZEPAM INJ 2 MG/ML VIAL IV PRN (20:57)
[2018-11-03] VITALS: BP 137/79
[2018-11-03] MEDS: HYDROMORPHONE 1 MG/1 ML DISP.SYRIN IV PRN (01:35)
[2018-11-03] MEDS: PIPERACILLIN /TAZOBACTAM 3.375 G in IV D5W 100 ML IV SCH ×3 (01:38→18:07)
[2018-11-03] MEDS: IV D5/0.45 NACL 1,000 ML IV PRN (03:44)
[2018-11-03] MEDS: LACTULOSE 10 G/15 ML UDC (PYXIS) PO SCH ×2 (03:50→12:47)
[2018-11-03 04:00] VITALS: BP 142/74
[2018-11-03 08:00] VITALS: BP 127/81
[2018-11-03 08:33] LABS: BASOPHILS # (AUTO) 0.2 /CMM (0.0-0.2); BASOPHILS % (AUTO) 3.2 % (0.0-2.0); HEMATOCRIT 31 % (39-51); HEMOGLOBIN 10.1 g/dL (13.5-17.5); LYMPHOCYTES # (AUTO) 0.7 /CMM (0.8-4.8); LYMPHOCYTES % (AUTO) 8.7 % (20.0-44.0); MEAN CORPUSCULAR HGB CONC 33 g/dl (31.0-36.0); MEAN CORPUSCULAR VOLUME 86 fL (80-96); MONOCYTES # (AUTO) 1.2 /CMM (0.1-1.30); MONOCYTES % (AUTO) 15.2 % (2.0-12.0); NEUTROPHILS # (AUTO) 5.3 /CMM (1.8-8.9); NEUTROPHILS % (AUTO) 69.9 % (43.0-81.0); PLATELET COUNT (AUTO) 74 /CMM (150-450); RED BLOOD CELL COUNT(AUTO) 3.57 MIL/uL (4.5-6.0); WHITE BLOOD COUNT (AUTO) 7.6 K/uL (4.3-11.0)
[2018-11-03 08:42] LABS: CREATININE 0.9 mg/dL (0.6-1.3); POTASSIUM 3.6 mmol/L (3.5-5.1)
[2018-11-03] MEDS: PANTOPRAZOLE 40 MG VIAL IV SCH ×2 (09:06→17:59)
[2018-11-03] MEDS: METHADONE HCL 10 MG TABLET PO SCH (09:08)
[2018-11-03] MEDS: PROPRANOLOL HCL 40 MG TABLET PO SCH ×2 (09:09→21:13)
[2018-11-03] MEDS: PYRIDOXINE HCL INJ 100 MG/ML VIAL IV SCH (09:11)
[2018-11-03 11:03] LABS: BAND % (MANUAL) 1 % (0.0-5.0); EOSINOPHILS % (MANUAL) 5 % (0-4); LYMPHOCYTES % (MANUAL) 7 % (16-48); MONOCYTES % (MANUAL) 15 % (0-11.0); NEUTROPHILS % (MANUAL) 72 (42-76)
[2018-11-03 12:00] VITALS: BP 122/78
[2018-11-03 16:00] VITALS: BP 123/83
[2018-11-03 20:00] VITALS: BP 138/87
[2018-11-04] VITALS: BP 104/78
[2018-11-04] MEDS: PIPERACILLIN /TAZOBACTAM 3.375 G in IV D5W 100 ML IV SCH ×2 (01:10→09:03)
[2018-11-04 04:00] VITALS: BP 138/84
[2018-11-04] MEDS: IV D5/0.45 NACL 1,000 ML IV PRN (05:07)
[2018-11-04 06:17] LABS: BASOPHILS # (AUTO) 0.3 /CMM (0.0-0.2); BASOPHILS % (AUTO) 3.7 % (0.0-2.0); EOSINOPHILS % (AUTO) 3.1 % (0.0-6.0); HEMATOCRIT 29 % (39-51); HEMOGLOBIN 9.7 g/dL (13.5-17.5); LYMPHOCYTES # (AUTO) 0.6 /CMM (0.8-4.8); LYMPHOCYTES % (AUTO) 8.3 % (20.0-44.0); MEAN CORPUSCULAR HGB CONC 33 g/dl (31.0-36.0); MEAN CORPUSCULAR VOLUME 87 fL (80-96); MONOCYTES % (AUTO) 14.6 % (2.0-12.0); NEUTROPHILS % (AUTO) 70.3 % (43.0-81.0); PLATELET COUNT (AUTO) 71 /CMM (150-450); WHITE BLOOD COUNT (AUTO) 7.1 K/uL (4.3-11.0)
[2018-11-04 06:24] LABS: ALBUMIN 1.8 g/dL (3.4-5.0); BILIRUBIN,TOTAL 20.9 mg/dL (0.2-1.0); CALCIUM, SERUM 7.2 mg/dL (8.5-10.1); CREATININE 0.9 mg/dL (0.6-1.3); POTASSIUM 3.6 mmol/L (3.5-5.1)
[2018-11-04] MEDS: HYDROMORPHONE 1 MG/1 ML DISP.SYRIN IV PRN (07:42)
[2018-11-04 08:00] VITALS: BP 128/87
[2018-11-04] MEDS: PYRIDOXINE HCL INJ 100 MG/ML VIAL IV SCH (08:52)
[2018-11-04] MEDS: PANTOPRAZOLE 40 MG VIAL IV SCH (08:52)
[2018-11-04] MEDS: METHADONE HCL 10 MG TABLET PO SCH (08:53)
[2018-11-04] MEDS: PROPRANOLOL HCL 40 MG TABLET PO SCH (08:53)
[2018-11-04] MEDS ORDERED: LACTULOSE 10 G/15 ML UDC (PYXIS) PO PRN (09:00)
[2018-11-04] MEDS ORDERED: PANTOPRAZOLE 40 MG TABLET.DR PO SCH (10:00)
[2018-11-04] MEDS ORDERED: LACT10SO6 PO (10:03)
[2018-11-04] MEDS ORDERED: PANT40TA2 PO (10:03)
[2018-11-04] MEDS ORDERED: PROP40TA7 PO (10:03)
[2018-11-04 10:12] LABS: BAND % (MANUAL) 1 % (0.0-5.0); LYMPHOCYTES % (MANUAL) 4 % (16-48); MONOCYTES % (MANUAL) 13 % (0-11.0); NEUTROPHILS % (MANUAL) 82 (42-76)
[2018-11-04 12:00] VITALS: BP 118/72
[2018-11-04] MEDS ORDERED: LACTULOSE 10 G/15 ML UDC (PYXIS) PO SCH (12:00)
== END 2018-11-04 14:50 | disposition home health service (06) | DRG 280 ==
LOC: ER 09:35 → ICU 10:42 → TELE-TD 11-02 17:17
PROVIDERS: ADMIT Internal Medicine; ATTEND Internal Medicine
PROC: 30233N1 Transfusion of Nonautologous Red Blood Cells into Peripheral Vein, Percutaneous Approach (ICD-10-PCS; 2018-10-26)
PROC: 30233K1 Transfusion of Nonautologous Frozen Plasma into Peripheral Vein, Percutaneous Approach (ICD-10-PCS; 2018-10-26)
PROC: 02HV33Z Insertion of Infusion Device into Superior Vena Cava, Percutaneous Approach (ICD-10-PCS; 2018-10-27)
PROC: 06L38CZ Occlusion of Esophageal Vein with Extraluminal Device, Via Natural or Artificial Opening Endoscopic (ICD-10-PCS; principal; 2018-10-28)
PROC: 5A1945Z Respiratory Ventilation, 24-96 Consecutive Hours (ICD-10-PCS; principal; 2018-10-28)
PROC: 0BH17EZ Insertion of Endotracheal Airway into Trachea, Via Natural or Artificial Opening (ICD-10-PCS; principal; 2018-10-28)
PROC: 30233R1 Transfusion of Nonautologous Platelets into Peripheral Vein, Percutaneous Approach (ICD-10-PCS; principal; 2018-10-28)
PROC: 0W9G3ZZ Drainage of Peritoneal Cavity, Percutaneous Approach (ICD-10-PCS; 2018-11-02)
DX: K70.31 Alcoholic cirrhosis of liver with ascites (principal); I85.11 Secondary esophageal varices with bleeding; D68.9 Coagulation defect, unspecified; D69.6 Thrombocytopenia, unspecified; K25.4 Chronic or unspecified gastric ulcer with hemorrhage; E88.09 Other disorders of plasma-protein metabolism, not elsewhere classified; D62 Acute posthemorrhagic anemia; K72.90 Hepatic failure, unspecified without coma; F10.239 Alcohol dependence with withdrawal, unspecified; B19.9 Unspecified viral hepatitis without hepatic coma; F11.23 Opioid dependence with withdrawal; K76.6 Portal hypertension; K29.71 Gastritis, unspecified, with bleeding; K20.9 Esophagitis, unspecified; E87.6 Hypokalemia; Z53.09 Procedure and treatment not carried out because of other contraindication; I12.9 Hypertensive chronic kidney disease with stage 1 through stage 4 chronic kidney disease, or unspecified chronic kidney disease; N18.9 Chronic kidney disease, unspecified
CPT/HCPCS: 31720; 36415; 36569; 36600; 71045-TC; 76700-TC; 76942-TC; 80048-TC; 80053-TC; 80074; 80076-TC; 82140-TC; 82803-TC; 82962-TC; 83690-TC; 83735-TC; 84484-TC; 85025-TC; 85610-TC; 85730-TC; 86850-TC; 86921-TC; 87070-TC; 87081-TC; 87806; 88305-TC; 88312-TC; 89051-TC; 92526; 92611-TC; 94002-TC; 94003-TC; 94799-TC; 99082-TC; A4216; A4349; A6402; C1751; C9113; G0378; J0171; J0696; J1170; J1200; J1630; J1940; J2060; J2250; J2270; J2354; J2405; J2543; J2704; J3411; J3415; J3430; J3480; J3490; J7030; J7042; J7050; J7060; P9016-BL; P9017-BL; P9034-BL; P9047; Q2036

== ENCOUNTER 2019-07-26 12:30 | Inpatient (IN) | payer OTHER ==
[2019-07-26] VITALS (17 sets, daily range): BP systolic 118–143; BP diastolic 46–84
[~2019-07-26] VITALS: Ht 170.2 cm; Wt 97.5 kg
[~2019-07-26 12:30] MED LIST changes: +CALC500T52 PO; +FERR325T23 PO; +FURO-144 PO; +LACT10SO6 PO; -METH10TA2 PO; +MULT1TAB69 PO; +PANT40TA2 PO; +PROP40TA7 PO; +SPIR25TA PO
--- NOTE | 2019-07-26 12:34 | NUR ---
[id number] C/O ABD PAIN W/ SOB, SCROTUM AREA SWELLING AND L UPPER LEG PAIN. PATIENT NOTED W JAUNDICE. TO ER BED 10, HOOKED TO MONITOR, CHANGED TO GOWN, PROVIDED W WARM BLANKET, AWAITING MD ABBOTT.
--- NOTE | 2019-07-26 12:48 | NUR ---
DR CEBALLOS AT BEDSIDE FOR EVAL
[2019-07-26] MEDS ORDERED: MORPHINE SULFATE INJ 2 MG/ML DISP.SYRIN IV ONE (13:00)
--- NOTE | 2019-07-26 13:16 | NUR ---
CALLED XRAY FOR PARACENTESIS
--- NOTE | 2019-07-26 13:26 | NUR ---
PATIENT SIGNED CONSENT FOR ULTRASOUND GUIDED PARENTESIS
[2019-07-26 13:27] LABS: BASOPHILS # (AUTO) 0.1 /CMM (0.0-0.2); BASOPHILS % (AUTO) 1.7 % (0.0-2.0); EOSINOPHILS % (AUTO) 2.2 % (0.0-6.0); LYMPHOCYTES # (AUTO) 0.4 /CMM (0.8-4.8); LYMPHOCYTES % (AUTO) 11.4 % (20.0-44.0); MEAN CORPUSCULAR HGB CONC 28 g/dl (31.0-36.0); MEAN CORPUSCULAR VOLUME 68 fL (80-96); MONOCYTES # (AUTO) 0.5 /CMM (0.1-1.30); MONOCYTES % (AUTO) 14.8 % (2.0-12.0); NEUTROPHILS # (AUTO) 2.6 /CMM (1.8-8.9); NEUTROPHILS % (AUTO) 69.9 % (43.0-81.0); PLATELET COUNT (AUTO) 113 /CMM (150-450); WHITE BLOOD COUNT (AUTO) 3.7 K/uL (4.3-11.0)
[2019-07-26] MEDS ORDERED: MORPHINE SULFATE INJ 4 MG/ML DISP.SYRIN ONE (13:27)
[2019-07-26 13:34] LABS: CALCIUM, SERUM 7.7 mg/dL (8.5-10.1); CREATININE 1.3 mg/dL (0.6-1.3); HEMATOCRIT 11 % (39-51); POTASSIUM 3.7 mmol/L (3.5-5.1)
[2019-07-26 13:40] LABS: ALBUMIN 2.2 g/dL (3.4-5.0); BILIRUBIN,DIRECT 1.2 mg/dL (0.0-0.2); BILIRUBIN,TOTAL 1.3 mg/dL (0.2-1.0); TOTAL PROTEIN, SERUM 5.2 g/dL (6.4-8.2)
--- NOTE | 2019-07-26 14:30 | NUR ---
US TECH AT BEDSIDE FOR PARENTESIS
[2019-07-26 14:36] LABS: OCCULT BLOOD STOOL POSITIVE (NEGATIVE)
[2019-07-26 14:49] LABS: BAND % (MANUAL) 3 % (0.0-5.0); BASOPHILS % (MANUAL) 1 % (0.0-2.0); EOSINOPHILS % (MANUAL) 2 % (0-4); LYMPHOCYTES % (MANUAL) 19 % (16-48); MONOCYTES % (MANUAL) 13 % (0-11.0); NEUTROPHILS % (MANUAL) 62 (42-76)
[2019-07-26] MEDS ORDERED: PANTOPRAZOLE 40 MG VIAL ONE (14:56)
[2019-07-26] MEDS ORDERED: PANTOPRAZOLE 40 MG VIAL IV ONE (15:00)
--- NOTE | 2019-07-26 15:03 | NUR ---
CHARITO FROM [facility] CALLING FOR LABS AND V/S. PT WILL POSSIBLY STAY IN THE FACILITY D/T LOW HGB
--- NOTE | 2019-07-26 15:22 | NUR ---
CALLED DR DUARTE. AWAITING HIS CALL BACK
--- NOTE | 2019-07-26 15:40 | NUR ---
5 LITERS OF ABDOMINAL FLUID COLLECTED BY US TECH AT RLQ
--- NOTE | 2019-07-26 15:45 | NUR ---
VERIFIED BLOOD TO BE TRANSFUSED WITH MEGAN ZULUAGA RN.
--- NOTE | 2019-07-26 15:51 | NUR ---
PATIENT STARTED WITH BLOOD TRANSFUSION. VITAL SIGNS STABLE. WILL CONTINUE TO MONITOR
--- NOTE | 2019-07-26 15:52 | NUR ---
CALLED DR DUARTE AND LEFT A MESSAGE AGAIN. AWAITING HIS CALL BACK
--- NOTE | 2019-07-26 16:06 | NUR ---
ONGOING BLOOD TRANSFUSION, NO ADVERSE REACTION NOTED, VITAL SIGNS TAKEN AND STABLE
--- NOTE | 2019-07-26 16:10 | NUR ---
Called Nursing [facility] for ICU bed.
--- NOTE | 2019-07-26 16:13 | NUR ---
[facility]. FACILITY SERVICE ASSOCIATE SPEAKING TO HOSPITALIST
--- NOTE | 2019-07-26 16:29 | NUR ---
DR ERICKSON AT BEDSIDE
[2019-07-26] MEDS ORDERED: MORPHINE SULFATE INJ 2 MG/ML DISP.SYRIN IV PRN (17:00)
[2019-07-26] MEDS ORDERED: MAG HYDROX/AL HYDROX/SIMETH 30 ML UDC PO PRN (17:00)
[2019-07-26] MEDS ORDERED: MAGNESIUM HYDROXIDE 30 ML UDC PO PRN (17:00)
[2019-07-26] MEDS ORDERED: Z GUARD REMEDY 2 OZ OINT TP PRN (17:00)
[2019-07-26] MEDS ORDERED: LACTULOSE 10 G/15 ML UDC (PYXIS) PO PRN (17:00)
[2019-07-26] MEDS ORDERED: ONDANSETRON HCL/PF 4 MG/2 ML VIAL IVP PRN (17:00)
[2019-07-26] MEDS ORDERED: PANTOPRAZOLE 40 MG VIAL IV SCH (17:00)
--- NOTE | 2019-07-26 17:07 | NUR ---
REPORT GIVEN TO HAMILTON OF ICU
[2019-07-26] MEDS ORDERED: OCTREOTIDE 50 MCG in IV NS 0.9% 50 ML IV ONE (17:30)
[2019-07-26] MEDS ORDERED: OCTREOTIDE 1,250 MCG in IV NS 0.9% 247.5 ML IV PRN (18:00)
[2019-07-26] MEDS: FERROUS SULFATE (325 MG) 325 MG/TAB TABLET PO SCH (18:31)
[2019-07-26 19:24] LABS: IRON, SERUM 10 ug/dl (50-175)
[2019-07-26 19:25] LABS: TOTAL IRON BINDING CAPACITY 333 ug/dl (250-450)
[2019-07-26 19:38] LABS: FERRITIN 7 ng/mL (8-388)
--- NOTE | 2019-07-26 20:00 | NUR ---
Received patient AAOX4.MUNGUIA.VS stable.SR per tele monitoring.Respiration even and unlabored. SPO2 100% on RA. H/H 3.0/11.to received 3 units PRBC.With ongoing blood transfusion 2nd uint. Denies pain sob or any discomfort.JULIANNE MIDLINE inserted with good blood return.Sandostatin bolus given to be followed by gtt.Safety measures implemented.Encouraged to use call light for assistance. Kept at bedside.Continue monitoring.
--- NOTE | 2019-07-26 20:54 | NUR ---
Received call from with orders.If H/H <8 to give 1 unit PRBC, IF H/H < 7 give 2 units PRBC, IF H/H < 6 give 3 units PRBC.
[2019-07-27] VITALS (53 sets, daily range): BP systolic 119–164; BP diastolic 49–93
--- NOTE | 2019-07-27 00:40 | NUR ---
Patient resting.VS stable.3 units PRBC completed and no adverse reaction noted. Will recheck H/H in 1 HR.
[2019-07-27 01:33] LABS: HEMOGLOBIN 5.5 g/dL (13.5-17.5)
[2019-07-27 01:34] LABS: BILIRUBIN,DIRECT 1.8 mg/dL (0.0-0.2); BILIRUBIN,TOTAL 2.9 mg/dL (0.2-1.0)
[2019-07-27 02:26] LABS: MEAN CORPUSCULAR HGB CONC 31 g/dl (31.0-36.0); MEAN CORPUSCULAR VOLUME 76 fL (80-96); PLATELET COUNT (AUTO) 92 /CMM (150-450); RED BLOOD CELL COUNT(AUTO) 2.35 MIL/uL (4.5-6.0); WHITE BLOOD COUNT (AUTO) 3.3 K/uL (4.3-11.0)
[2019-07-27 02:35] LABS: HEMATOCRIT 18 % (39-51); HEMOGLOBIN 5.5 g/dL (13.5-17.5)
[2019-07-27 02:36] LABS: HEMOGLOBIN 5.5 g/dL (13.5-17.5)
--- NOTE | 2019-07-27 03:55 | NUR ---
H/H 5.5 Post blood transfusion. Protocol initiated.To transfuse 3 units of PRBC 1st unit infusing. VS stable.Patient resting in no distress.Patient refused bed bath.
[2019-07-27 04:43] LABS: BASOPHILS % (AUTO) 1.4 % (0.0-2.0); EOSINOPHILS % (AUTO) 7.4 % (0.0-6.0); LYMPHOCYTES # (AUTO) 0.7 /CMM (0.8-4.8); LYMPHOCYTES % (AUTO) 19.6 % (20.0-44.0); MEAN CORPUSCULAR HGB CONC 31 g/dl (31.0-36.0); MEAN CORPUSCULAR VOLUME 76 fL (80-96); MONOCYTES # (AUTO) 0.5 /CMM (0.1-1.30); MONOCYTES % (AUTO) 14.2 % (2.0-12.0); NEUTROPHILS # (AUTO) 1.9 /CMM (1.8-8.9); NEUTROPHILS % (AUTO) 57.4 % (43.0-81.0); PLATELET COUNT (AUTO) 87 /CMM (150-450); RED BLOOD CELL COUNT(AUTO) 2.37 MIL/uL (4.5-6.0); WHITE BLOOD COUNT (AUTO) 3.3 K/uL (4.3-11.0)
[2019-07-27 04:50] LABS: HEMOGLOBIN 5.6 g/dL (13.5-17.5)
[2019-07-27 04:51] LABS: HEMATOCRIT 18 % (39-51)
[2019-07-27 04:57] LABS: CALCIUM, SERUM 7.6 mg/dL (8.5-10.1); CREATININE 1.2 mg/dL (0.6-1.3); MAGNESIUM 1.8 mg/dL (1.8-2.4); POTASSIUM 4.3 mmol/L (3.5-5.1)
[2019-07-27 05:05] LABS: THYROID STIMULATING HORMONE 0.624 uIU/mL (0.358-3.74)
--- NOTE | 2019-07-27 06:35 | NUR ---
Patient resting in no acute distress.VS remains stable. Above blood transfusion infusing well. To received 2 more units of PRBC.Will endorse to day shift for continuity of care.
[2019-07-27 07:33] LABS: EOSINOPHILS % (MANUAL) 3 % (0-4); LYMPHOCYTES % (MANUAL) 15 % (16-48); MONOCYTES % (MANUAL) 12 % (0-11.0); NEUTROPHILS % (MANUAL) 70 (42-76)
--- NOTE | 2019-07-27 08:34 | NUR ---
received pt from shift superintendent, a/o x4, SR, receiving blood for last h/h of 5.04/30, RA, sat well, tolerates diet, uses urinal, v/s stable, no pain, pt turns and repositions by himself.
[2019-07-27] MEDS: MULTIVITAMINS,THERAGRAN 1 UDTAB TABLET PO SCH (08:50)
[2019-07-27] MEDS: FERROUS SULFATE (325 MG) 325 MG/TAB TABLET PO SCH (08:50)
[2019-07-27] MEDS: CALCIUM CARBONATE (1250) 500 MG TABLET PO SCH (08:50)
[2019-07-27] MEDS ORDERED: PANTOPRAZOLE 40 MG VIAL IV SCH (09:00)
[2019-07-27] MEDS: PANTOPRAZOLE 40 MG TABLET.DR PO SCH ×2 (10:00→20:47)
[2019-07-27] MEDS ORDERED: PROPRANOLOL LA 60 MG CAP.SA.24H PO SCH (10:00)
[2019-07-27] MEDS: SPIRONOLACTONE 25 MG TABLET PO SCH (10:45)
[2019-07-27] MEDS: FUROSEMIDE 20 MG TABLET PO SCH (10:45)
--- NOTE | 2019-07-27 12:53 | NUR ---
blood transfusion finished, pt a/o x4, SR, v/s stable, no pain, no transfusion reactions.
[2019-07-27 14:06] LABS: HEMOGLOBIN 8.6 g/dL (13.5-17.5)
[2019-07-27] MEDS ORDERED: MAGNESIUM CITRATE 296 ML BOTTLE PO ONE (14:30)
[2019-07-27] MEDS ORDERED: PEG 3350/NA SULF,BICARB,CL/KCL 4,000 ML BOTTLE PO ONE (14:30)
[2019-07-27] MEDS ORDERED: NA PHOS,M-B/NA PHOS,DI-BA 1 EA ENEMA RC PRN (14:30)
[2019-07-27] MEDS: METHADONE HCL 10 MG TABLET PO SCH (14:53)
--- NOTE | 2019-07-27 16:17 | NUR ---
pt is resting in the bed, a/o x4, SR, v/s stable, received methadone, pt cleaned, and changed.
[2019-07-27] MEDS: LACTULOSE 10 G/15 ML UDC (PYXIS) PO SCH (16:21)
[2019-07-27 18:05] LABS: HEMATOCRIT 28 % (39-51); HEMOGLOBIN 9.1 g/dL (13.5-17.5); MEAN CORPUSCULAR HGB CONC 32 g/dl (31.0-36.0); MEAN CORPUSCULAR VOLUME 78 fL (80-96); PLATELET COUNT (AUTO) 97 /CMM (150-450); RED BLOOD CELL COUNT(AUTO) 3.62 MIL/uL (4.5-6.0); WHITE BLOOD COUNT (AUTO) 5.9 K/uL (4.3-11.0)
--- NOTE | 2019-07-27 18:52 | NUR ---
MS IDENTIFIER HORSE NOTE PATIENT RECEIVED BY NAIDA. PATIENT IS ALERT AND ORIENTED X4. PATIENT BREATHING IS EVEN AND UNLABORED. PATIENT IN NO ACUTE DISTRESS. NO SOB NOTED. VITAL SIGNS WNL. IV INTACT. PATIENT FAMILY AT THE BEDSIDE. PATIENT HOB IS ELEVATED. BED ALARM IS ON. SAFETY PRECAUTIONS IN PLACE. PATIENT IS KEPT CLEAN, DRY, AND COMFORTABLE. PATIENT BED IS LOCKED AND IN LOWEST POSITION. CALL LIGHT WITHIN REACH. WILL ENDORSE CARE TO PM SHIFT FOR JOSE ROBERTO.
--- NOTE | 2019-07-27 18:58 | NUR ---
pt transferred to [facility], v/s stable, no pain.
--- NOTE | 2019-07-27 19:13 | NUR ---
RN OPENING NOTES RECEIVED PATIENT FROM BILL DELAROSA. PATIENT IS CURRENTLY RESTING IN BED, COMFORTABLE, AWAKE. PATIENT A/O X 4. NO SIGNS OF RESPIRATORY DISTRESS. PATIENT DENIES SHORTNESS OF BREATH. VITALS SIGNS STABLE, WNL. IV SITES: RAC 20G, JULIANNE MIDLINE: BOTH INTACT, PATENT, FLUSHED, S/L. PATIENT DENIES PAIN AT THIS TIME. SAFETY PRECAUTIONS IMPLEMENTED; CALL LIGHT WITHIN REACH, BED LOCKED, BED LOWEST POSITION, SIDE RAILS UP X2. WILL CONTINUE TO MONITOR.
[2019-07-28] VITALS (12 sets, daily range): BP systolic 110–147; BP diastolic 61–86
--- NOTE | 2019-07-28 06:53 | NUR ---
RN CLOSING NOTES PATIENT CURRENTLY AWAKE RESTING COMFORTABLY IN BED. PATIENT REMAINS A/O X 4. AFEBRILE. VITAL SIGNS STABLE. ON ROOM AIR, TOLERATING WELL. NO SIGNS OF RESPIRATORY DISTRESS. PATIENT DENIES SHORTNESS OF BREATH. IV SITES REMAIN INTACT, PATENT, FLUSHED, S/L. NO COMPLAINTS OF PAIN OR DISCOMFORT THROUGHOUT THE SHIFT. NO SIGNS OF BLEEDING NOTED. SAFETY PRECAUTIONS IMPLEMENTED; CALL LIGHT WITHIN REACH, BED LOCKED, BED LOWEST POSITION, SIDE RAILS UP X2. WILL ENDORSE TO DAYSHIFT NURSE FOR CONTINUITY OF CARE.
--- NOTE | 2019-07-28 07:30 | NUR ---
RN MS NOTES PT IN BED, ASLEEP, EASILY AROUSABLE, ALERT AND ORIENTED, NO COMPLAINT AT THIS TIME, NOT IN DISTRESS, CALL LIGHT WITHIN REACH, KEPT COMFORTABLE IN BED.
[2019-07-28 07:31] LABS: BASOPHILS % (AUTO) 0.7 % (0.0-2.0); EOSINOPHILS % (AUTO) 4.5 % (0.0-6.0); HEMATOCRIT 24 % (39-51); HEMOGLOBIN 7.8 g/dL (13.5-17.5); LYMPHOCYTES # (AUTO) 0.7 /CMM (0.8-4.8); LYMPHOCYTES % (AUTO) 10.1 % (20.0-44.0); MEAN CORPUSCULAR HGB CONC 33 g/dl (31.0-36.0); MEAN CORPUSCULAR VOLUME 79 fL (80-96); MONOCYTES % (AUTO) 14.5 % (2.0-12.0); NEUTROPHILS # (AUTO) 4.9 /CMM (1.8-8.9); NEUTROPHILS % (AUTO) 70.2 % (43.0-81.0); PLATELET COUNT (AUTO) 88 /CMM (150-450); RED BLOOD CELL COUNT(AUTO) 3.06 MIL/uL (4.5-6.0)
[2019-07-28 07:42] LABS: CALCIUM, SERUM 7.5 mg/dL (8.5-10.1); CREATININE 1.2 mg/dL (0.6-1.3); POTASSIUM 4.1 mmol/L (3.5-5.1)
[2019-07-28] MEDS: FUROSEMIDE 20 MG TABLET PO SCH (08:27)
[2019-07-28] MEDS: MULTIVITAMINS,THERAGRAN 1 UDTAB TABLET PO SCH (08:27)
[2019-07-28] MEDS: CALCIUM CARBONATE (1250) 500 MG TABLET PO SCH (08:27)
[2019-07-28] MEDS: PANTOPRAZOLE 40 MG TABLET.DR PO SCH (08:27)
[2019-07-28] MEDS: SPIRONOLACTONE 25 MG TABLET PO SCH (08:27)
[2019-07-28] MEDS: LACTULOSE 10 G/15 ML UDC (PYXIS) PO SCH ×2 (08:27→16:54)
[2019-07-28] MEDS ORDERED: PROPRANOLOL LA 60 MG CAP.SA.24H PO SCH (09:00)
--- NOTE | 2019-07-28 09:24 | NUR ---
RN MS NOTES DR. DUARTE INFORMED OF PT'S LATEST H/H 7.824, ORDERED 1 UNIT PRBC INFUSION, PT INFORMED.
[2019-07-28] MEDS: METHADONE HCL 10 MG TABLET PO SCH (10:05)
[2019-07-28] MEDS ORDERED: PROP80CA PO (11:46)
[2019-07-28] MEDS ORDERED: SPIR50TA PO (11:46)
[2019-07-28] MEDS ORDERED: PROP60CA6 PO (11:49)
--- NOTE | 2019-07-28 12:00 | NUR ---
RN MS NOTES PT IN BED, RESTING, DENIES PAIN, NOT IN DISTRESS, PRBC INFUSION ONGOING, TOLERATING WELL, CALL LIGHT WITHIN REACH.
[2019-07-28] MEDS ORDERED: SOD FERRIC GLUC 125 MG in IV NS 0.9% 100 ML IV SCH ×4 (14:00)
--- NOTE | 2019-07-28 15:07 | NUR ---
RN MS NOTES PT COMPLETED 1 UNIT PRBC TRANSFUSION ORDERED BY DR. DUARTE, TOLERATED WELL, VITAL SIGNS REMAIN STABLE, PT FOR US GUIDED PARACENTESIS, CONSENT GIVEN BY PT, PROCEDURE EXPLAINED, VERBALIZED UNDERSTANDING.
[2019-07-28 16:36] LABS: HEMOGLOBIN 8.6 g/dL (13.5-17.5)
--- NOTE | 2019-07-28 17:23 | NUR ---
RN MS NOTES RELAYED LATEST H/H TO DR. FELICIA MD ALSO INFORMED THAT 3L OF FLUID WAS OBTAINED FROM PT'S US GUIDED PARACENTESIS, PT'S VITALS STABLE, PT STATED THAT HE IS FINE, PER DR. DUARTE, OK FOR PT TO BE DISCHARGED HOME, PT INFORMED, PER GALILEO, PT'S GIRLFRIEND, SHE WILL BE ABLE TO CHARGER OPERATOR PT AT AROUND 9PM, PT INFORMED, CHARGE NURSE INFORMED.
--- NOTE | 2019-07-28 18:11 | NUR ---
RN MS NOTES PT AWAKE, SITTING IN HIS CHAIR, WATCHING TV WHILE EATING DINNER, TOLERATING WELL, DISCHARGE AND MEDICATION INSTRUCTIONS PROVIDED TO PT, VERBALIZED UNDERSTANDING, BELONGINGS ACCOUNTED FOR, WILL BE PICKED UP BY GIRLFRIEND AT 9PM, PRESCRIPTION GIVEN TO PT, ALL NEEDS ATTENDED.
--- NOTE | 2019-07-28 19:20 | NUR ---
MS/RN NOTES RECEIVED PT. LYING IN BED. PT. IS AWAKE, ALERT AND ORIENTED X4. BREATHING EVEN AND UNLABORED ON ROOM AIR. NO SOB, RESPIRATORY DISTRESS OR COMPLAINTS OF PAIN NOTED AT THIS TIME. PT. WITH LEFT UPPER ARM MIDLINE PRESENT, PATENT AND INTACT. PT. WITH RIGHT AC 20 GAUGE IV SALINE LOCK PRESENT, PATENT AND INTACT. PER DAYSHIFT NURSE PT. IS PENDING DISCHARGE TO HOME TONIGHT AWAITING PICKUP BY HIS FRIEND. PER DAYSHIFT NURSE PT. EXITCARE, DISCHARGE PAPERWORK AND BELONGINGS LIST COMPLETED AND SIGNED, ORIGINALS PLACED IN CHART AND COPY PROVIDED TO PATIENT. WILL REMOVE PT. IV ACCESS PRIOR TO DISCHARGE. BED LOCKED AND IN LOWEST POSITION, SIDE RAILS UP X2, CALL LIGHT WITHIN REACH, WILL CONTINUE TO MONITOR.
--- NOTE | 2019-07-28 21:35 | NUR ---
MS/RN NOTES PT. IS AWAKE, ALERT AND ORIENTED X4. BREATHING EVEN AND UNLABORED ON ROOM AIR. NO SOB, RESPIRATORY DISTRESS OR COMPLAINTS OF PAIN NOTED AT THIS TIME. PT. VITAL SIGNS STABLE. PT. EXITCARE, DISCHARGE PAPERWORK AND BELONGINGS LIST COMPLETED AND SIGNED, ORIGINALS PLACED IN CHART AND COPY PROVIDED TO PATIENT. PT. IV ACCESS AND ID BANDS REMOVED. NO S/S OF INFECTION NOTED AT PREVIOUS IV ACCESS SITES. PT. LEFT THE FLOOR VIA WHEELCHAIR ACCOMPANIED BY HYDRAULIC JACK OPERATOR AND PT. FRIEND GALILEO AT 2135 IN STABLE CONDITION.
[2019-07-29] MEDS ORDERED: SPIRONOLACTONE 25 MG TABLET PO SCH (09:00)
[2019-07-29] MEDS ORDERED: FUROSEMIDE 20 MG TABLET PO SCH (09:00)
[2019-07-30 08:06] LABS: AFP, TUMOR MARKER 1.9 ng/mL (0.0-8.3)
== END 2019-07-28 21:35 | disposition home or self-care (01) | DRG 280 ==
LOC: ER 12:32 → ICU 16:36 → MED 07-27 18:38
PROVIDERS: ADMIT Nurse Practitioner Acute Care; ATTEND Internal Medicine
PROC: 0W9G3ZZ Drainage of Peritoneal Cavity, Percutaneous Approach (ICD-10-PCS; principal; 2019-07-26)
PROC: 30233P1 Transfusion of Nonautologous Frozen Red Cells into Peripheral Vein, Percutaneous Approach (ICD-10-PCS; principal; 2019-07-26)
PROC: 0W9G3ZZ Drainage of Peritoneal Cavity, Percutaneous Approach (ICD-10-PCS; 2019-07-28)
DX: K70.31 Alcoholic cirrhosis of liver with ascites (principal); E43 Unspecified severe protein-calorie malnutrition; D61.818 Other pancytopenia; D68.9 Coagulation defect, unspecified; K72.90 Hepatic failure, unspecified without coma; E88.09 Other disorders of plasma-protein metabolism, not elsewhere classified; I85.00 Esophageal varices without bleeding; D50.9 Iron deficiency anemia, unspecified; F10.10 Alcohol abuse, uncomplicated; B19.20 Unspecified viral hepatitis C without hepatic coma; F19.10 Other psychoactive substance abuse, uncomplicated; K20.9 Esophagitis, unspecified; K29.70 Gastritis, unspecified, without bleeding; K25.9 Gastric ulcer, unspecified as acute or chronic, without hemorrhage or perforation; E80.6 Other disorders of bilirubin metabolism; Z86.19 Personal history of other infectious and parasitic diseases; N18.9 Chronic kidney disease, unspecified; F11.10 Opioid abuse, uncomplicated; Z68.33 Body mass index [BMI] 33.0-33.9, adult
CPT/HCPCS: 36415; 36569; 71045-TC; 76705-TC; 76942-TC; 80048-TC; 80061-TC; 80076-TC; 82105; 82140-TC; 82247-TC; 82248-TC; 82272-TC; 82378; 82728-TC; 83540-TC; 83735-TC; 84100-TC; 84443-TC; 85025-TC; 85027-TC; 85730-TC; 86850-TC; 86921-TC; 87070-TC; 87081-TC; 89051-TC; 93307-TC; 93976-TC; A4216; A6403; C9113; G0378; J2270; J2354; J2405; J2916; J7030; J7050; P9016-BL

== ENCOUNTER 2019-08-22 14:53 | Inpatient (IN) | payer OTHER ==
[~2019-08-22] VITALS: Ht 165.1 cm; Wt 68.0 kg
[~2019-08-22 14:53] MED LIST changes: -PROP40TA7 PO; +PROP60CA38 PO; -SPIR25TA PO; +SPIR50TA PO
--- NOTE | 2019-08-22 15:05 | NUR ---
MOON Rodriguez From home ALOC "Liver problems. Altered" PATIENT'S EYES OPENS, NON-VERBAL AT THIS TIME. CONFUSED. ATTACHED TO THE MONITOR, CHANGED INTO GOWN, SITTER AT BEDSIDE FOR SAFETY. NO DISTRESS NOTED.
[2019-08-22 15:22] LABS: APPEARANCE,URINE Clear (CLEAR); BILIRUBIN,URINE Negative (NEGATIVE); BLOOD, URINE Negative Ery/uL (NEGATIVE); COLOR,URINE Yellow (YELLOW); KETONES,URINE Negative (NEGATIVE); LEUKOCYTE ESTERASE ,URINE Negative (NEGATIVE); NITRITE, URINE Negative (NEGATIVE); PH,URINE 7.5 (5.0-8.0); PROTEIN,URINE Negative (NEGATIVE); UGLUCOSE Negative (NEGATIVE)
[2019-08-22] MEDS ORDERED: MIDAZOLAM HCL 2 MG/2ML VIAL IV ONE (15:30)
[2019-08-22 15:33] LABS: BACTERIA,URINE None seen /HPF (None Seen); RBC,URINE NONE SEEN /HPF (0-2); SQUAMOUS EPITHELIAL CELL,UR Rare /HPF (None Seen); WBC,URINE 0-2 /HPF (0-3)
[2019-08-22] MEDS ORDERED: PROP60CA2 PO (15:42)
[2019-08-22] MEDS ORDERED: PANT40TA4 PO (15:42)
[2019-08-22] MEDS ORDERED: PANT40TA2 PO (15:42)
[2019-08-22] MEDS ORDERED: SPIR100T5 PO (15:43)
[2019-08-22] MEDS ORDERED: MIDAZOLAM HCL 2 MG/2ML VIAL ONE (15:49)
--- NOTE | 2019-08-22 15:50 | NUR ---
ATTEMPTED MULTIPLE TIMES TO INSERT A PERIPHERAL LINE, UNSUCCESSFUL.
--- NOTE | 2019-08-22 15:55 | NUR ---
PICC LINE NURSE AT BEDSIDE, ATTEMPTING TO PUT IN A MIDLINE.
[2019-08-22 16:08] LABS: CALCIUM, SERUM 9.1 mg/dL (8.5-10.1); CREATININE 1.5 mg/dL (0.6-1.3); POTASSIUM 4.3 mmol/L (3.5-5.1)
[2019-08-22 16:13] LABS: BASOPHILS # (AUTO) 0.1 /CMM (0.0-0.2); BASOPHILS % (AUTO) 1.1 % (0.0-2.0); EOSINOPHILS % (AUTO) 4.1 % (0.0-6.0); HEMATOCRIT 36 % (39-51); HEMOGLOBIN 12.2 g/dL (13.5-17.5); LYMPHOCYTES # (AUTO) 1.4 /CMM (0.8-4.8); LYMPHOCYTES % (AUTO) 16.4 % (20.0-44.0); MEAN CORPUSCULAR HGB CONC 34 g/dl (31.0-36.0); MEAN CORPUSCULAR VOLUME 87 fL (80-96); MONOCYTES # (AUTO) 1.4 /CMM (0.1-1.30); MONOCYTES % (AUTO) 16.7 % (2.0-12.0); NEUTROPHILS # (AUTO) 5.3 /CMM (1.8-8.9); NEUTROPHILS % (AUTO) 61.7 % (43.0-81.0); PLATELET COUNT (AUTO) 138 /CMM (150-450); RED BLOOD CELL COUNT(AUTO) 4.15 MIL/uL (4.5-6.0); WHITE BLOOD COUNT (AUTO) 8.6 K/uL (4.3-11.0)
[2019-08-22 16:14] LABS: ALBUMIN 2.9 g/dL (3.4-5.0); BILIRUBIN,TOTAL 3.3 mg/dL (0.2-1.0); TOTAL PROTEIN, SERUM 6.5 g/dL (6.4-8.2)
[2019-08-22 17:21] LABS: EOSINOPHILS % (MANUAL) 1 % (0-4); LYMPHOCYTES % (MANUAL) 6 % (16-48); MONOCYTES % (MANUAL) 12 % (0-11.0); NEUTROPHILS % (MANUAL) 81 (42-76)
[2019-08-22] MEDS ORDERED: LACTULOSE 10 G/15 ML UDC (PYXIS) ONE ×2 (17:28→17:47)
[2019-08-22] MEDS ORDERED: ALPRAZOLAM 0.5 MG TABLET ONE (17:29)
[2019-08-22] MEDS ORDERED: LACTULOSE 10 G/15 ML UDC (PYXIS) GT ONE (17:30)
[2019-08-22] MEDS ORDERED: IV NS 0.9% 1,000 ML IV ONE (17:30)
--- NOTE | 2019-08-22 17:50 | NUR ---
SOURAV BHAKTA AT BEDSIDE. PATIENT ABLE TO TOLERATE PO SLOWLY, ORDER FOR NGT CANCELLED.
--- NOTE | 2019-08-22 18:21 | NUR ---
SPOKE WITH NIKKI FROM ELECTRONIC FIELD SERVICE ENGINEER, INFORMED HER BENJAMIN YONY SPOKE WITH DR. UMANZOR AT [facility] AND STATED PATIENT OK TO STAY HERE. CONFIRMED WITH NIKKI AND STATED PATIENT OK TO STAY HERE.
--- NOTE | 2019-08-22 18:35 | NUR ---
DR FELICIA OLMOS
--- NOTE | 2019-08-22 18:36 | NUR ---
CALLED FOR [facility] BED
--- NOTE | 2019-08-22 19:43 | NUR ---
DR. DUARTE CALLED BACK AND SPOKE WITH ULISES BENJAMIN.
--- NOTE | 2019-08-22 20:11 | NUR ---
RECIEVED BED 111-2
--- NOTE | 2019-08-22 20:29 | NUR ---
REPORT GIVEN TO BLAKE KHAN FOR JOSE ROBERTO.
[2019-08-22] MEDS ORDERED: ALPRAZOLAM 0.5 MG TABLET PO ONE (20:30)
[2019-08-22 20:45] VITALS: BP 124/62
--- NOTE | 2019-08-22 21:02 | NUR ---
PATIENT TRANSFERRED TO ROOM 111-2 VIA ACLS PROTOCOL. NO DISTRESS NOTED. PATIENT IN STABLE CONDITION. STILL ALTERED BUT RESPONSIVE TO VERBAL STIMULI.
--- NOTE | 2019-08-22 21:09 | NUR ---
TD RN RCD PT FROM ER SOILED IN URINE. PROVIDED COMPLETE BED BATH. CALLED DR DUARTE FOR ADMITTING ORDERS. PT IS [facility] STATUS.
[2019-08-22] MEDS ORDERED: OLANZAPINE 10 MG VIAL IM PRN (21:30)
[2019-08-22] MEDS ORDERED: PANTOPRAZOLE 40 MG VIAL IV SCH (21:30)
[2019-08-22] MEDS ORDERED: LORAZEPAM INJ 2 MG/ML VIAL IV PRN (21:30)
[2019-08-22] MEDS ORDERED: IV D5/ 0.9% NACL 1,000 ML IV PRN (22:30)
[2019-08-22] MEDS ORDERED: Folic acid 1 MG/0.2 ML VIAL ONE (22:44)
[2019-08-22] MEDS ORDERED: Thiamine 100 MG/ML VIAL ONE (22:44)
[2019-08-22] MEDS: Folic acid 1 MG in IV D5W 50 ML IV SCH (23:00)
[2019-08-22] MEDS: Thiamine 100 MG in IV D5W 50 ML IV SCH (23:00)
[2019-08-22] MEDS: LACTULOSE 10 G/15 ML UDC (PYXIS) PR SCH (23:50)
[2019-08-23] VITALS: BP 98/53
[2019-08-23 04:00] VITALS: BP 106/57
[2019-08-23] MEDS: LACTULOSE 10 G/15 ML UDC (PYXIS) PR SCH ×3 (04:11→14:36)
[2019-08-23] MEDS ORDERED: METH10TA2 PO (04:25)
[2019-08-23] MEDS ORDERED: METHADONE PO (04:25)
--- NOTE | 2019-08-23 04:25 | NUR ---
TD RN SIGNIFICANT OTHER [facility] [phone]
[2019-08-23 07:17] LABS: BASOPHILS # (AUTO) 0.1 /CMM (0.0-0.2); EOSINOPHILS % (AUTO) 5.8 % (0.0-6.0); HEMATOCRIT 37 % (39-51); HEMOGLOBIN 12.2 g/dL (13.5-17.5); LYMPHOCYTES # (AUTO) 1.8 /CMM (0.8-4.8); LYMPHOCYTES % (AUTO) 27.1 % (20.0-44.0); MEAN CORPUSCULAR HGB CONC 33 g/dl (31.0-36.0); MEAN CORPUSCULAR VOLUME 88 fL (80-96); MONOCYTES # (AUTO) 1.3 /CMM (0.1-1.30); MONOCYTES % (AUTO) 19.3 % (2.0-12.0); NEUTROPHILS % (AUTO) 45.8 % (43.0-81.0); PLATELET COUNT (AUTO) 105 /CMM (150-450); RED BLOOD CELL COUNT(AUTO) 4.21 MIL/uL (4.5-6.0); WHITE BLOOD COUNT (AUTO) 6.6 K/uL (4.3-11.0)
[2019-08-23 07:35] LABS: ALBUMIN 2.6 g/dL (3.4-5.0); BILIRUBIN,TOTAL 2.9 mg/dL (0.2-1.0); CALCIUM, SERUM 8.5 mg/dL (8.5-10.1); CREATININE 1.3 mg/dL (0.6-1.3); MAGNESIUM 2.2 mg/dL (1.8-2.4); POTASSIUM 3.8 mmol/L (3.5-5.1); TOTAL PROTEIN, SERUM 5.7 g/dL (6.4-8.2)
[2019-08-23 08:00] VITALS: BP 127/78
[2019-08-23 12:00] VITALS: BP 113/71
[2019-08-23] MEDS: Potassium Chloride 10 MEQ in IV D5/ 0.9% NACL 1,000 ML IV PRN (12:57)
[2019-08-23] MEDS ORDERED: PANT40TA4 PO (13:55)
[2019-08-23] MEDS ORDERED: PANT40TA2 PO ×2 (13:55→13:57)
[2019-08-23] MEDS: LACTULOSE 10 G/15 ML UDC (PYXIS) PO SCH ×2 (15:00→21:59)
[2019-08-23 16:00] VITALS: BP 128/72
--- NOTE | 2019-08-23 18:39 | NUR ---
Spoke with Marianela Loera at methadone clinic regarding patient 85 mg daily dose of methadone. Her cell phone if we need her as she is out of office this evening is [phone], [employer] phone is [phone] and fax [phone] per Beta with [facility] answering service. Naveed Santana RN
--- NOTE | 2019-08-23 19:30 | NUR ---
COMPLIANCE TECHNICIAN NOTE PATIENT IN BED RESTRAINTS PRESE Addendum: 08/23/19 at 2004 by PEEWEE RAO RN SOFT RESTRAINT ON NIL WRIST PRESENT. CIRCULATION CHECK DONE HANDS WARM AND DRY. PATIENT A/O X 1-2 NO. PATIENT SR ON THE MONITOR. PATIENT DENIES PAIN AT THIS TIME. NO S.S OF RESP DISTRESS. IV PATENT AND INTACT. WELLS/ FLEXISEAL DRAINING TO GRAVITY. RN WILL CONTINUE TO MONITOR AND DO SAFETY CHECKS/ CIRCULATION CHECKS.
[2019-08-23 20:00] VITALS: BP 135/70
[2019-08-23] MEDS: Folic acid 1 MG in IV D5W 50 ML IV SCH (21:59)
[2019-08-23] MEDS: Thiamine 100 MG in IV D5W 50 ML IV SCH (22:00)
[2019-08-24] VITALS (7 sets, daily range): BP systolic 99–121; BP diastolic 62–83
[2019-08-24] MEDS: LACTULOSE 10 G/15 ML UDC (PYXIS) PO SCH ×4 (03:19→16:35)
[2019-08-24] MEDS: Potassium Chloride 10 MEQ in IV D5/ 0.9% NACL 1,000 ML IV PRN ×2 (03:19→18:14)
[2019-08-24 06:41] LABS: BASOPHILS # (AUTO) 0.1 /CMM (0.0-0.2); BASOPHILS % (AUTO) 1.4 % (0.0-2.0); EOSINOPHILS % (AUTO) 5.2 % (0.0-6.0); HEMATOCRIT 37 % (39-51); HEMOGLOBIN 12.2 g/dL (13.5-17.5); LYMPHOCYTES # (AUTO) 1.4 /CMM (0.8-4.8); LYMPHOCYTES % (AUTO) 17.3 % (20.0-44.0); MEAN CORPUSCULAR HGB CONC 33 g/dl (31.0-36.0); MEAN CORPUSCULAR VOLUME 89 fL (80-96); MONOCYTES # (AUTO) 1.6 /CMM (0.1-1.30); MONOCYTES % (AUTO) 19.4 % (2.0-12.0); NEUTROPHILS # (AUTO) 4.6 /CMM (1.8-8.9); NEUTROPHILS % (AUTO) 56.7 % (43.0-81.0); PLATELET COUNT (AUTO) 107 /CMM (150-450); RED BLOOD CELL COUNT(AUTO) 4.23 MIL/uL (4.5-6.0); WHITE BLOOD COUNT (AUTO) 8.1 K/uL (4.3-11.0)
[2019-08-24 06:52] LABS: CALCIUM, SERUM 8.1 mg/dL (8.5-10.1); CREATININE 1.2 mg/dL (0.6-1.3); MAGNESIUM 2.2 mg/dL (1.8-2.4)
--- NOTE | 2019-08-24 07:05 | NUR ---
RN NOTES RECEIVED PT ON BED, ALERT/ CONFUSED, ON RA, NO SOB NOTED, ON TELE SR HR IN 70'S , FLEXI SEAL INTACT, WELLS DRAINING TO GRAVITY , D51/2NS WITH 10MEQ KCL RUNNING VIA L UPPER ARM MIDLINE , SITE CLEAN , DRY AND INTACT , SR UP x3, CALL LIGHT WITHIN EASY REACH , BED LOCKED AND IN LOWEST POSITION, CONTINUE TO MONITOR .
[2019-08-24] MEDS ORDERED: PANTOPRAZOLE 40 MG TABLET.DR PO SCH (07:30)
[2019-08-24] MEDS ORDERED: METHADONE HCL 10 MG TABLET PO SCH (09:00)
[2019-08-24] MEDS ORDERED: THIAMINE HCL 100 MG TABLET PO SCH (11:00)
[2019-08-24] MEDS ORDERED: FOLIC ACID 1 MG TABLET PO SCH (11:00)
--- NOTE | 2019-08-24 12:00 | NUR ---
RN NOTES PT STILL CONFUSED, TRYING TO GET OUT OF BED, VSS STABLE, CONTINUE TO MONITOR .
--- NOTE | 2019-08-24 18:00 | NUR ---
RN NOTES PT CONFUSED , NO SIGNIFICANT CHANGES NOTED ON THIS SHIFT, WILL ENDORSE TO DATA WAREHOUSING ENGINEER NURSE FOR CONTINUITY OF CARE.
--- NOTE | 2019-08-24 21:14 | NUR ---
RN NOTE. INITIAL ASSESSMENT. RECEIVED THE PT REST ON THE BED. AWAKE, ALERT, DOES NOT FOLLOW COMMANDS. PT ON ROOM AIR. SAT 97%. JUNIOR BRAND MANAGER SHOWING NSR. IV LT UPPER ARM MID LINE IVF D5NS IN 10 MEQ POTASSIUM 75 ML/H. FC PATENT. URINE DRAINING. RAYRAY SOFT WRIST RESTRAINT CHECKED AND RELEASED. NO I NJURY OR REDNESS NOTED. WILL CONTINUE TO MONITOR VITALS.
[2019-08-24] MEDS ORDERED: FOLI1TAB16 PO (21:55)
[2019-08-24] MEDS ORDERED: LACT10SO6 PO (21:56)
[2019-08-24] MEDS ORDERED: METH10TA2 PO (21:57)
[2019-08-24] MEDS ORDERED: OLAN10TA3 PO (21:59)
--- NOTE | 2019-08-24 22:50 | NUR ---
RN NOTE. PT TRANSFER TO [facility]. REPORT GIVEN TO JAYLEN KHAN. PT ROOM NO 311 D. TELE. VITALS STABLE. PT GIRL FRIEND AT BED SIDE. RICHARD. REPORT GIVEN TO AYUSH GREW[facility][id number].
[2019-08-25] VITALS: BP 120/65
--- NOTE | 2019-08-25 01:19 | NUR ---
RN NOTE 2ND AMBULANCE REPORT GIVEN TO DULCE WELCH. AMBULANCE NAME IS [facility] #[id number]
== END 2019-08-25 01:55 | disposition short-term general hospital (02) | DRG 279 ==
LOC: ER 14:54 → TELE1 20:22 → TELE-TD 21:41 → TELE1 08-23 10:02
PROVIDERS: ADMIT Internal Medicine; ATTEND Internal Medicine
DX: K72.90 Hepatic failure, unspecified without coma (principal); D69.59 Other secondary thrombocytopenia; I85.10 Secondary esophageal varices without bleeding; E88.09 Other disorders of plasma-protein metabolism, not elsewhere classified; K70.30 Alcoholic cirrhosis of liver without ascites; B19.20 Unspecified viral hepatitis C without hepatic coma; F19.10 Other psychoactive substance abuse, uncomplicated; N18.2 Chronic kidney disease, stage 2 (mild)
CPT/HCPCS: 36415; 36569; 70450-TC; 71045-TC; 80048-TC; 80053-TC; 80076-TC; 80305; 81000-TC; 82140-TC; 82962-TC; 83690-TC; 83735-TC; 85025-TC; 85730-TC; 87081-TC; C9113; G0378; J2250; J3411; J3480; J3490; J7030; J7042; J7060

== ENCOUNTER 2019-10-01 15:23 | Emergency (ER) | payer OTHER ==
[~2019-10-01] VITALS: Ht 165.1 cm; Wt 95.3 kg
[~2019-10-01 15:23] MED LIST changes: -CALC500T52 PO; -FERR325T23 PO; +FOLI1TAB16 PO; -FURO-144 PO; +METH10TA2 PO; +METHADONE PO; -MULT1TAB69 PO; +OLAN10TA3 PO; -PANT40TA2 PO; -PROP60CA38 PO; -SPIR50TA PO
--- NOTE | 2019-10-01 15:38 | NUR ---
PT [id number], FROM HOME, C/O SOB x 3 DAYS, NOTED ABDOMINAL DISTENSION Hx LIVER CIRRHOSIS. PT AAOX4, BREATHING EVEN AND UNLABORED W/ NAD O2 @98%. PT ENDORSES ABDOMINAL PAIN 08/22. PT CONNECTED TO THE MONITOR.
--- NOTE | 2019-10-01 15:58 | NUR ---
INFORMED CONSENT OBTAINED FOR ULTRASOUND GUIDED PARACENTESIS
--- NOTE | 2019-10-01 16:00 | NUR ---
STRAIGHT LINE EDGER AT BEDSIDE
--- NOTE | 2019-10-01 16:19 | NUR ---
ULTRASOUND GUIDED PARACENTESIS IN PROGRESS
--- NOTE | 2019-10-01 17:08 | NUR ---
PA AT BEDSIDE FOR RECTAL EXAM
--- NOTE | 2019-10-01 17:09 | NUR ---
9200 ML FLUID DRAINAGE
[2019-10-01 17:18] LABS: OCCULT BLOOD STOOL POSITIVE (NEGATIVE)
[2019-10-01 17:22] LABS: BASOPHILS % (AUTO) 0.2 % (0.0-2.0); EOSINOPHILS % (AUTO) 0.4 % (0.0-6.0); HEMATOCRIT 21 % (39-51); LYMPHOCYTES # (AUTO) 1.2 /CMM (0.8-4.8); LYMPHOCYTES % (AUTO) 6.6 % (20.0-44.0); MEAN CORPUSCULAR HGB CONC 31 g/dl (31.0-36.0); MEAN CORPUSCULAR VOLUME 95 fL (80-96); MONOCYTES # (AUTO) 1.9 /CMM (0.1-1.30); MONOCYTES % (AUTO) 10.7 % (2.0-12.0); NEUTROPHILS # (AUTO) 14.3 /CMM (1.8-8.9); NEUTROPHILS % (AUTO) 82.1 % (43.0-81.0); PLATELET COUNT (AUTO) 248 /CMM (150-450); RED BLOOD CELL COUNT(AUTO) 2.17 MIL/uL (4.5-6.0); WHITE BLOOD COUNT (AUTO) 17.5 K/uL (4.3-11.0)
[2019-10-01 17:23] LABS: HEMOGLOBIN 6.5 g/dL (13.5-17.5)
--- NOTE | 2019-10-01 17:28 | NUR ---
XRAY AT BEDSIDE
[2019-10-01 17:30] LABS: CALCIUM, SERUM 8.4 mg/dL (8.5-10.1); CREATININE 3.8 mg/dL (0.6-1.3); POTASSIUM 5.1 mmol/L (3.5-5.1)
[2019-10-01] MEDS ORDERED: ALBUMIN 25% 12.5 GM/50 ML BOTTLE IV ONE (17:30)
[2019-10-01 17:33] LABS: SERUM AMMONIA 40 umol/L (11-32)
[2019-10-01 17:36] LABS: ALBUMIN 1.8 g/dL (3.4-5.0); BILIRUBIN,DIRECT 2.4 mg/dL (0.0-0.2); BILIRUBIN,TOTAL 3.3 mg/dL (0.2-1.0); TOTAL PROTEIN, SERUM 4.8 g/dL (6.4-8.2)
[2019-10-01 17:43] LABS: LIPASE 91 U/L (73-393)
[2019-10-01] MEDS ORDERED: ALBUMIN 25% 100 ML IV ONE (17:49)
[2019-10-01] MEDS ORDERED: PANTOPRAZOLE 40 MG VIAL ONE (17:49)
[2019-10-01] MEDS ORDERED: PANTOPRAZOLE 40 MG VIAL IV ONE (18:00)
[2019-10-01 18:05] LABS: BAND % (MANUAL) 2 % (0.0-5.0); LYMPHOCYTES % (MANUAL) 8 % (16-48); MONOCYTES % (MANUAL) 7 % (0-11.0); NEUTROPHILS % (MANUAL) 83 (42-76)
[2019-10-01] MEDS ORDERED: LACTULOSE 10 G/15 ML UDC (PYXIS) PO ONE (18:30)
[2019-10-01] MEDS ORDERED: LACTULOSE 10 G/15 ML UDC (PYXIS) ONE ×2 (18:31→18:49)
--- NOTE | 2019-10-01 19:03 | NUR ---
BLOOD TRANSFUSION CONSENT SIGNED.
--- NOTE | 2019-10-01 19:30 | NUR ---
BLOOD TRANSFUSION STARTED AT A RATE OF 75ML/HR. WILL CONT TO MONITOR ,
--- NOTE | 2019-10-01 19:47 | NUR ---
ON ONGOING BLOOD TRANSFUSION W/ NO A/R. NO SOB. NO C/O BACK PAIN. DENIED ANY DISCOMFORT. VSS. AFEBRILE. WILL CONT TO MONITOR,
--- NOTE | 2019-10-01 20:07 | NUR ---
PT ACCEPTED TO [facility] BY DR LUCAS. RM 220-B. BILL BONILLA. [phone]. AWAITING AMBULANCE ETA.
--- NOTE | 2019-10-01 20:25 | NUR ---
reprt given to juliana at [facility]
--- NOTE | 2019-10-01 21:45 | NUR ---
BLOOD TRANSFUSION COMPLETED W/ NO A/R. DENIED FLANK. NO S/S OF FLUID OVERLOAD NOTED .
--- NOTE | 2019-10-01 22:55 | NUR ---
PER [facility] CASE MANAGEMENT. FOLLOWING UP ON AMBULANCE ETA. [facility] TO TRANSPORT AT 2120.
--- NOTE | 2019-10-01 23:02 | NUR ---
[facility]
[2019-10-02 00:14] VITALS: BP 123/73
--- NOTE | 2019-10-02 00:45 | NUR ---
PT WAS PICKED UP BY [facility] AND TRANSFERRED TO [facility] UNDER ACLS IN STABLE CONDITION. ALL BELONGINGS PICKED UP. VSS.
== END 2019-10-02 01:00 | disposition short-term general hospital (02) ==
LOC: ER 15:24
DX: K74.60 Unspecified cirrhosis of liver (principal); R18.8 Other ascites; K92.2 Gastrointestinal hemorrhage, unspecified; D64.9 Anemia, unspecified; Z79.899 Other long term (current) drug therapy; Z86.19 Personal history of other infectious and parasitic diseases
CPT/HCPCS: 36415; 36430; 49083; 71045; 80048; 80076; 82140; 82272; 83690; 85025; 85730; 86850; 86921; 93005; 96365; 96375; 99285; C9113; J7030; P9016; P9047; 76942-TC